=== PATIENT | female | born 1985 | race Caucasian/White ===

== ENCOUNTER 2020-02-12 13:44 | Outpatient (CLI) | payer BC, SELFPAY ==
--- NOTE | ~2020-02-12 | MR_ITS ---
EXAMINATION: MR humerus RT wo con DATE: 02/12/2020 15:13 INDICATION: Right upper arm pain with possible biceps tear. Assess for strain of muscle, fascia or te ndon. TECHNIQUE: Magnetic resonance imaging (MRI) of the right upper arm was performed without intravenous contrast. Sequences included axial, sagittal and coronal T1-weighted FSE and fluid sensitive FSE STIR . COMPARISON: Right shoulder radiographs dated 01/31/2020 FINDINGS: Dilation somewhat limited by small amount of motion artifact as well as field inhomogeneity artifact at the margins of the [id number] involving the right shoulder and elbow likely due in part to body habitus and position within the coil. Bone alignment is normal. Normal bone marrow signal throughout with no fracture, reactive edema or pathologic marrow replacing process. Joint spaces appear relativ abby preserved with small marginal osteophytes at the ulnotrochlear articulation consistent with mild osteoarthritis. Physiologic amount fluid in the joint spaces. Normal muscle signal throughout the upp er arm with no evident muscle strain. The distal biceps brachia tendon as well as the brachialis and triceps tendons at the elbow appear normal. The visualized long head biceps tendon appears normal and is normally located in the intertubercular groove with no surrounding bicipital tenosynovitis. Nelsy l right axillary lymph nodes. IMPRESSION: 1. Unremarkable MRI of the right upper arm. 2. Limited evaluation of the right shoulder and elbow which are at the margins of the [id number]. If there is specific concern for pathology at either of these locations would recommend further evalu ation with smaller field of view dedicated shoulder or elbow MRI respectively. Reviewed, dictated and finalized at location A. IMPRESSION: 1. Unremarkable MRI of the right upper arm. 2. Limited evaluation of the right shoulder and elbow which are at the margins of the [id number]. If there is specific concern for pathology at either of t hese locations would recommend further evaluation with smaller field of view de dicated shoulder or elbow MRI respectively.
== END 2020-02-12 13:45 | disposition home or self-care (01) ==
PROVIDERS: PCP Internal Medicine; Visit Provider Orthopaedic Surgery
DX: S46.211A Strain of muscle, fascia and tendon of other parts of biceps, right arm, initial encounter (principal)
CPT/HCPCS: 73218

== ENCOUNTER 2020-06-06 12:12 | Outpatient (CLI) | payer BC, SELFPAY ==
--- NOTE | ~2020-06-06 | XR_ITS ---
EXAMINATION: XR ankle LT min 3V DATE: 06/06/2020 12:35 INDICATION: Left ankle injury and pain. TECHNIQUE: 4 views of left ankle were obtained. COMPARISON: None. FINDINGS: Bone alignment is normal. No fracture. There is mild osteoarthritis of talonavicular joint. IMPRESSION: 1. Mild osteoarthritis of talonavicular joint. Reviewed, dictated and finalized at location B.
== END 2020-06-06 12:13 | disposition home or self-care (01) ==
LOC: ANHIMG 12:17
PROVIDERS: PCP Internal Medicine; Visit Provider Internal Medicine
DX: S99.912A Unspecified injury of left ankle, initial encounter (principal); S99.922A Unspecified injury of left foot, initial encounter; M19.072 Primary osteoarthritis, left ankle and foot
CPT/HCPCS: 73610

== ENCOUNTER 2020-08-30 12:47 | Outpatient (CLI) | payer BC, SELFPAY ==
--- NOTE | ~2020-08-30 | MR_ITS ---
EXAMINATION: MR ankle LT wo con, MR foot LT wo con DATE: 08/30/2020 14:11 INDICATION: Generalized left foot and ankle pain post injury a couple months prior. TECHNIQUE: 1. Magnetic resonance imaging (MRI) of the left ankle was performed without intravenous contrast. Seq uences included sagittal, coronal, and axial PD-weighted FSE and PD-weighted FS FSE. 2. MRI of the left foot was performed without intravenous contrast. Sequences included axial and elise nal T1-weighted FSE, axial and coronal PD-weighted FS FSE, axial PD-weighted FSE and sagittal fluid s ensitive FSE STIR. COMPARISON: None. FINDINGS: Medial ankle ligaments: Deep and superficial deltoid ligaments as well as the spring ligament are normal. Lateral ankle ligaments: The anterior and posterior inferior tibiofibular ligaments are normal. There is thickening and longit udinal split tearing of the anterior talofibular ligament with mild cystic change at its fibular inse rtion. The calcaneofibular ligament, posterior talofibular as well as the intervening posterior inter malleolar ligaments appear normal. Mid and forefoot ligaments: The Lisfranc ligament complex is normal. The collateral ligament complex at the metatarsophalangeal a nd interphalangeal joints are normal. Tendons: Achilles tendon is normal. The peroneus longus and brevis tendons are normal. The tibialis anterior a nd extensor hallucis longus and extensor digitorum longus tendons are normal. The tibialis posterior, flexor digitorum longus and flexor hallucis longus tendons are normal. Plantar fascia: Minimal thickening and minimal increased signal of the proximal aspect of the central component of th e plantar aponeurosis with small enthesophyte at its calcaneal origin. No surrounding edema to sugges t acute plantar fasciitis versus be consistent with mild chronic plantar enthesopathy. Bones/other: Bone alignment is normal. Normal marrow signal throughout with no fracture reactive marrow edema or p athologic marrow replacing process. There is a normal variant os trigonum. Mild synovitis along the c ephalad and lateral margins of the os trigonum between the intramedullary and posterior talofibular l igaments which could predispose towards posterior ankle impingement. Joint spaces are normal. Sinus T arsi and tarsal tunnel are unremarkable. Fluid: Physiologic amount of fluid in the joint spaces. No bursitis, tenosynovitis or other abnormal fluid c ollections. IMPRESSION: 1. Partial tear of the anterior talofibular ligament. 2. Mild synovitis at the posterolateral aspect of the ankle along side an os trigonum which could pre dispose towards posterior impingement. 3. Chronic mild enthesopathy at the calcaneal insertion of the proximal plantar aponeurosis. Reviewed, dictated and finalized at location H. MARKER IMPRESSION: 1. Partial tear of the anterior talofibular ligament. 2. Mild synovitis at the posterolateral aspect of the ankle along side an os tr igonum which could predispose towards posterior impingement. 3. Chronic mild enthesopathy at the calcaneal insertion of the proximal plantar aponeurosis.
== END 2020-08-30 12:48 | disposition home or self-care (01) ==
PROVIDERS: PCP Internal Medicine; Visit Provider Internal Medicine
DX: M25.572 Pain in left ankle and joints of left foot (principal); S93.492A Sprain of other ligament of left ankle, initial encounter; M65.872 Other synovitis and tenosynovitis, left ankle and foot; M77.8 Other enthesopathies, not elsewhere classified
CPT/HCPCS: 73718; 73721

== ENCOUNTER 2021-04-07 11:07 | Outpatient (CLI) | payer OTHER, SELFPAY ==
[2021-04-07 11:43] LABS: Basophils Percent Auto 0.3 % (0.2-1.2); Eosinophils Absolute Auto 0.2 K/mm3 (0-0.3); Eosinophils Percent Auto 1.8 % (0-4.4); Hematocrit 41.1 % (37.0-47.0); Hemoglobin 14.1 g/dL (12.0-15.0); Immature Granulocyte Absolute 0.05 K/mm3 (0.00-0.031); Immature Granulocyte Percent A 0.6 % (0-0.5); Lymphocytes Absolute Auto 2.64 K/mm3 (0.9-3.2); Lymphocytes Percent Auto 29.2 % (18.3-44.2); Mean Corpuscular HGB Conc 34.3 g/dl (32-36); Mean Corpuscular Hemoglobin 30.7 pg (26-34); Mean Corpuscular Volume 89.5 fl (80-100); Mean Platelet Volume 8.6 fl (7.4-10.4); Monocytes Absolute Auto 0.5 K/mm3 (0.1-0.6); Monocytes Percent Auto 5.2 % (2.6-8.5); Neutrophils Absolute Auto 5.7 K/mm3 (1.3-6.7); Neutrophils Percent Auto 62.9 % (45.5-73.1); Platelet Count Result 348 k/mm3 (150-375); Red Blood Count 4.59 M/mm3 (4.2-5.4)
[2021-04-07 13:05] LABS: Anion Gap 15 mmol/L (8-16); Blood Urea Nitrogen 12 mg/dL (7-17); CRP 0.9 mg/dL (<1.0); Calcium 9.8 mg/dL (8.4-10.2); Carbon Dioxide 20 mmol/L (22-30); Chloride 102 mmol/L (98-107); Estimated Glomerular Filt Rate > 60; Glucose 265 mg/dL (65-105); Potassium 4.6 mmol/L (3.4-5.0); Sodium 137 mmol/L (137-145)
[2021-04-07 13:45] LABS: Erythrocyte Sedimentation Rate 20 mm/hr (0-20)
== END 2021-04-07 11:08 | disposition home or self-care (01) ==
PROVIDERS: PCP Internal Medicine; Visit Provider Internal Medicine
DX: R51.9 Headache, unspecified (principal); I10 Essential (primary) hypertension
CPT/HCPCS: 36415; 80048; 85025; 85652; 86140

== ENCOUNTER 2021-04-07 11:40 | Outpatient (CLI) | payer OTHER, SELFPAY ==
--- NOTE | ~2021-04-07 | CT_ITS ---
EXAMINATION: CT facial bones wo con DATE: 04/07/2021 13:04 INDICATION: Face pain. TECHNIQUE: Computed tomography (CT) of the facial bones and maxillofacial region was performed withou t intravenous contrast. Automated exposure control and iterative reconstruction technique were employ ed. The dose-length product was 605.33 mGy-cm. COMPARISON: None. FINDINGS: There is mild mucosal thickening in the paranasal sinuses. The orbits are normal. The nasal septum demonstrates a right lateral spur. No fracture. IMPRESSION: 1. No specific etiology for the patient's symptoms. Reviewed, dictated and finalized at location A.
--- NOTE | ~2021-04-07 | CT_ITS ---
EXAMINATION: CT brain wo con DATE: 04/07/2021 13:04 INDICATION: Headache. TECHNIQUE: Computed tomography (CT) of the head was performed without intravenous contrast. The mA wa s adjusted according to patient size. Iterative reconstruction technique was employed. The dose-lengt h product was 605.33 mGy-cm. COMPARISON: None FINDINGS: There are calcifications in right cerebellum. There is no intracranial hemorrhage, acute in farction, or abnormal intracranial mass lesion. The ventricles are normal in size. The orbits are nor mal. There is mild mucosal thickening in the paranasal sinuses. The mastoid air cells are normal. IMPRESSION: 1. Calcifications in right cerebellum, which may be dystrophic calcifications in an unusual location. Brain MRI without and with contrast is recommended to exclude neoplasm. Reviewed, dictated and finalized at location A. IMPRESSION: 1. Calcifications in right cerebellum, which may be dystrophic calcifications i n an unusual location. Brain MRI without and with contrast is recommended to ex clude neoplasm.
== END 2021-04-07 11:41 | disposition home or self-care (01) ==
LOC: ANHIMG 04-14 11:40
PROVIDERS: PCP Internal Medicine; Visit Provider Internal Medicine
DX: R51.9 Headache, unspecified (principal); R93.0 Abnormal findings on diagnostic imaging of skull and head, not elsewhere classified
CPT/HCPCS: 70450; 70486

== ENCOUNTER 2021-04-23 12:47 | Outpatient (CLI) | payer OTHER, SELFPAY ==
--- NOTE | ~2021-04-23 | MR_ITS ---
EXAMINATION: MR brain/brain stem wo/w con EXAM DATE: 04/23/2021 14:01 INDICATION: R51.9 - Headache, unspecified. Lesion of brain, headache. TECHNIQUE: Magnetic resonance imaging (MRI) of the brain/brain stem obtained without contrast. Sagit maria t T1, axial diffusion, gradient echo (T2*), T1, T2, FLAIR sequences obtained. Patient was then inj ected with 20 cc intravenous Multihance contrast. Axial and coronal postcontrast T1 weighted sequence s obtained. Correlation is made to head CT 04/07/2021. FINDINGS: There is right cerebellar small region of encephalomalacia and somewhat linear region of fields sceptibility on gradient-echo sequence corresponding to the calcification described on CT. There is n o associated vasogenic edema or enhancement to suggest tumor. Probably encephalomalacia and dystrophi c calcification from prior or congenital infarct or other injury. Otherwise, normal brain signal inte nsity. Flow voids are seen in the cerebral arteries on the T2 weighted sequences consistent with thei r expected patency. No extra-axial collections, acute intracranial hemorrhage, obstructive hydrocepha joni or acute infarction. The soft tissue is unremarkable. There are no areas of abnormal enhancement on the post contrast images. IMPRESSION: 1. Small region right cerebellar encephalomalacia and associated dystrophic calcification from prior infarct or other insult. 2. No acute findings. Reviewed, dictated and finalized at location B. IMPRESSION: 1. Small region right cerebellar encephalomalacia and associated dystrophic ca lcification from prior infarct or other insult. 2. No acute findings.
== END 2021-04-23 12:48 | disposition home or self-care (01) ==
LOC: ANHIMG 12:55
PROVIDERS: PCP Internal Medicine; Visit Provider Internal Medicine
DX: R51.9 Headache, unspecified (principal); G93.89 Other specified disorders of brain
CPT/HCPCS: 70553; A9577

== ENCOUNTER 2021-04-30 12:34 | Outpatient (CLI) | payer OTHER, SELFPAY ==
--- NOTE | ~2021-04-30 | US_ITS ---
EXAMINATION: US carotid duplex BI DATE: 04/30/2021 13:03 INDICATION: Other specified disorders of brain TECHNIQUE: Grayscale, color Doppler, and pulsed Doppler images of the cervical carotid arteries were obtained. The degree of vessel stenosis is placed in one of the following categories: normal, <50%, 5 0-69%, >=70% but less than near-occlusion, near-occlusion, or total occlusion. Note that percent sten osis relative to normal distal artery lumen diameter is indirectly measured from velocity measurement s as described by Kyaw, et al. Radiology 2003; 229:340-346. COMPARISON: None. FINDINGS: RIGHT: The right common carotid artery (CCA) peak systolic velocity (PSV) is 93 cm/s. The right internal car otid artery (ICA) PSV is 53 cm/s. The right ICA end-diastolic velocity (EDV) is 24 cm/s. The right IC A/CCA PSV ratio is 0.6. Grayscale and color Doppler images demonstrate no evident stenosis or plaque in the ICA. The external carotid artery (ECA) PSV is 106 cm/s. There is antegrade flow in the right v ertebral artery. LEFT: The left CCA PSV is 101 cm/s. The left ICA PSV is 47 cm/s. The left ICA EDV is 20 cm/s. The left ICA/ CCA PSV ratio is 0.5. Grayscale and color Doppler images demonstrate no evident stenosis or plaque in the ICA. The ECA PSV is 73 cm/s. There is antegrade flow in the left vertebral artery. IMPRESSION: 1. No evident plaque or stenosis in the left or right internal carotid arteries. Reviewed, dictated and finalized at location A. IMPRESSION: 1. No evident plaque or stenosis in the left or right internal carotid arteries .
== END 2021-04-30 12:35 | disposition home or self-care (01) ==
PROVIDERS: PCP Internal Medicine; Visit Provider Internal Medicine
DX: R09.89 Other specified symptoms and signs involving the circulatory and respiratory systems (principal)
CPT/HCPCS: 93880

== ENCOUNTER 2021-05-07 13:33 | Outpatient (CLI) | payer OTHER, SELFPAY ==
--- NOTE | 2021-05-07 13:48 | ECHO_ITS ---
Patient Info Name: Dheeraj Tarango Age: 35 years : 1985 Gender: Female Ht: 63 in Wt: 255 lbs BSA: 2.34 m2 HR: 98 bpm BP: 157 / 96 mmHg Technical Quality: Fair Exam Date: 05/07/2021 1:56 PM Exam Location: [facility] Patient Status: Outpatient Admit Date: 05/07/2021 Staff Ordering Physician: Benny Patel MD Clinical Laboratory Manager: RAJ Attending Provider: Benny Patel MD Referring Physician: Amanda TSANG; Exam Type: CA echo doppler w bubble study Study Info Indications - UNSPECIFIED BRAIN DISORDER - G93.89 Complete two-dimensional, color flow and Doppler transthoracic echocardiogram is performed with agitated saline. Contrast/Agitated Saline Contrast/Ag. Saline: Agitated Saline Amount: 20.00 ml Summary 1. Left ventricular chamber dimension is normal. 2. Left ventricular systolic function is normal, estimated at 55-60%. 3. There is mildly increased left ventricular wall thickness. 4. The left ventricular diastolic function is grade I diastolic dysfunction. 5. E/e' 11 is mildly elevated. Left Ventricle E/e' 11 is mildly elevated. Left ventricular chamber dimension is normal. Left ventricular systolic function is normal, estimated at 55-60%. There is mildly increased left ventricular wall thickness. The left ventricular diastolic function is grade I diastolic dysfunction. Right Ventricle Right ventricular chamber dimension is normal. Right ventricular systolic function is normal. Left Atria Left atrial chamber dimension is normal. Right Atria Right atrial chamber dimension is normal. Atrial Septum Agitated saline injection with and without valsalva maneuver opacified right cardiac chambers without shunt to left cardiac chambers. Intact interatrial septum visualized by agitated saline imaging. Aortic Valve The aortic valve is trileaflet. There is no aortic valve stenosis. There is no aortic valve regurgitation. Pulmonic Valve There is no pulmonic regurgitation. Mitral Valve There is no mitral valve stenosis. There is no mitral valve regurgitation. Tricuspid Valve There is no tricuspid valve regurgitation. Pericardium/Pleural There is no pericardial effusion. Inferior Vena Cava Normal inferior vena cava with >50% collapse upon inspiration consistent with normal right atrial pressure, 5 mmHg. Aorta The aortic root size at the sinus of Valsalva is normal. Left Ventricular Outflow Tract Name Value Normal LVOT 2D LVOT Diameter 2.0 cm LVOT Doppler LVOT Peak Gradient 5 mmHg LVOT Mean Gradient 3 mmHg LVOT VTI 20 cm LVOT VTI/AV VTI Ratio 0.7 LVOT Stroke Volume 61 ml LVOT CO 15.3 l/min LVOT CI 6.5 l/min/m2 Pulmonic Valve Name Value Normal
--- NOTE | 2021-05-12 12:29 | WPDHOLTEREM ---
Holter/Event Monitor Holter/Event Monitor Date of procedure: 05/07/21 Holter/Event Procedure: 48 Hr Holter Monitor Indications: Other specified disorders of the brain Conclusion: 1. 48 hour holter monitor on 05/07/21. 2. Predominant rhythm is sinus rhythm. HR range 64-160 bpm; average HR 104 bpm. 3. There are 4 premature supraventricular complexes. There is one atrial tachycardia at 169 bpm lasting 4 beats at 04:53. 4. There is 1 premature ventricular complex. No ventricular tachycardia. 5. No sinoatrial or atrioventricular blocks. No significant pauses greater than 2 seconds. 6. No symptoms available for correlation.
== END 2021-05-07 13:34 | disposition home or self-care (01) ==
PROVIDERS: PCP Internal Medicine; Visit Provider Internal Medicine
DX: G93.89 Other specified disorders of brain (principal); I10 Essential (primary) hypertension; I63.9 Cerebral infarction, unspecified
CPT/HCPCS: 93225; 93226; 93306; 96375

== ENCOUNTER 2021-06-11 12:59 | Outpatient (CLI) | payer OTHER, SELFPAY ==
--- NOTE | ~2021-06-11 | US_ITS ---
EXAMINATION: US pelvic complete w TV EXAM DATE: 06/11/2021 13:37 INDICATION: Pelvic pain. TECHNIQUE: Pelvic transabdominal and transvaginal sonogram was performed. There are multiple graysca le and Doppler images available for interpretation. Comparison is made to prior examination from 07/10. FINDINGS: Uterus measures 8.0 x 4.8 x 4.5 cm, artifact from IUD appears to be in the endometrial cav ity. Endometrial stripe measures 6 mm, within normal limits. There is a nabothian cyst. There is no free pelvic fluid. Right adnexa: The ovary measures 2.1 x 1.5 x 1.7 cm and is morphologically normal. Ovarian vascular f low confirmed. Left adnexa: The ovary is not identified. There is no adnexal mass. IMPRESSION: 1. Unremarkable pelvic ultrasound exam. Reviewed, dictated and finalized at location B.
== END 2021-06-11 13:00 | disposition home or self-care (01) ==
PROVIDERS: PCP Internal Medicine; Visit Provider Nurse Practitioner
DX: R10.2 Pelvic and perineal pain (principal)
CPT/HCPCS: 76830; 76856

== ENCOUNTER 2021-09-22 14:38 | Outpatient (CLI) | payer OTHER, SELFPAY ==
--- NOTE | ~2021-09-22 | CT_ITS ---
EXAMINATION: CT soft tissue neck wo con DATE: 09/22/2021 15:21 INDICATION: Left-sided jaw pain. Headache. Sialoadenitis. TECHNIQUE: Computed tomography (CT) of the neck was performed without intravenous contrast. Automated exposure control and iterative reconstruction technique were employed. The dose-length product was 5 52.67 mGy-cm. COMPARISON: CT maxillofacial 04/07/2021, head CT 04/07/2021 FINDINGS: There is an enlarged high right internal jugular chain lymph node measuring 19 x 16 mm. The major salivary glands are normal. No sialolith. There is mild mucosal thickening in the paranasal si nuses. The mastoid air cells are normal. Again seen are dystrophic calcifications in right cerebellu m. There is mild cervical spondylosis. IMPRESSION: 1. Stable mildly enlarged right high internal jugular chain lymph node, likely reactive. Reviewed, dictated and finalized at location A. 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
== END 2021-09-22 14:39 | disposition home or self-care (01) ==
LOC: ANHIMG 14:41
PROVIDERS: PCP Internal Medicine; Visit Provider Internal Medicine
DX: R51.9 Headache, unspecified (principal); R68.84 Jaw pain; K11.20 Sialoadenitis, unspecified; M47.812 Spondylosis without myelopathy or radiculopathy, cervical region
CPT/HCPCS: 70490

== ENCOUNTER 2023-04-18 15:45 | Outpatient (CLI) | payer BC, SELFPAY ==
--- NOTE | ~2023-04-18 | CT_ITS ---
EXAMINATION: CT sinus wo con DATE: 04/18/2023 16:05 INDICATION: Chronic sinusitis. TECHNIQUE: Computed tomography (CT) of the paranasal sinuses was performed without intravenous contra st. Iterative reconstruction technique was employed. The dose-length product was 273.81 mGy-cm. COMPARISON: Maxillofacial CT 04/07/2021 FINDINGS: The frontal sinuses are clear. There is mild mucosal thickening in the bilateral ethmoid si nuses and maxillary sinuses. There is mild mucosal thickening in sphenoid sinus. There is rightward d eviation nasal septum. There is leslie bullosa involving right middle turbinate. The ostiomeatal unit s are patent. IMPRESSION: 1. Mucosal thickening in the paranasal sinuses. 2. Rightward deviation of the nasal septum. Reviewed, dictated and finalized at location E.
== END 2023-04-18 15:46 ==
PROVIDERS: PCP Internal Medicine; Visit Provider Otolaryngology
DX: J32.9 Chronic sinusitis, unspecified (principal); J34.2 Deviated nasal septum
CPT/HCPCS: 70486

== ENCOUNTER 2023-10-04 15:23 | Emergency (ER) | payer BC, SELFPAY ==
--- NOTE | ~2023-10-04 | CT_ITS ---
EXAMINATION: CT abdomen pelvis w con DATE: 10/04/2023 16:21 INDICATION: abdominal pain, hx UC TECHNIQUE: Computed tomography (CT) of the abdomen and pelvis was performed with 100 mL Omnipaque-350 intravenous contrast. Automated exposure control and iterative reconstruction technique were employe d. The dose-length product was 1457.02 mGy-cm. COMPARISON: CT abdomen 10/21/2015; MR abdomen 12/10/2015. FINDINGS: Lower thorax: Unremarkable Liver: Normal. Biliary/Gallbladder: Gallbladder is absent. No bile duct dilation. Pancreas: No mass or duct dilation. Spleen: Normal. Adrenals:No mass. Kidneys: No suspicious mass, obstructing stone, or hydronephrosis. GI tract: Mild distal esophageal wall edema/thickening, with adjacent subcentimeter lymph nodes. No s mall or large bowel dilation. Appendix not visualized. 2.3 cm cyst in the left posterior/mid abdomina l fat, just inferior to the left paracolic gutter, stable since 2015. Mesentery/Peritoneum: No ascites, mass, or free air. Retroperitoneum: No mass. Pelvis: Pelvic organs are within normal limits. 3.1 cm simple left ovarian cyst which requires no add itional evaluation. IUD in good position. Soft Tissues: Soft tissues and body wall unremarkable. Bones: No acute osseous finding. IMPRESSION: Mild distal esophagitis with adjacent subcentimeter lymph nodes. Otherwise, no acute abdominopelvic process detected. Reviewed, dictated and finalized at location K. US TAKER
[2023-10-04 15:28] VITALS: BP 153/85; PULSE 96; RESP 16; TEMP 36.7; O2SAT 98
--- NOTE | 2023-10-04 15:30 | ED.ABDPAIN ---
HPI - Abdominal Pain General Chief Complaint: Abdominal Pain <Vania Puri APRN - Last Filed: 10/04/23 15:36> Stated Complaint: abd pain, nausea, low back pain, diarrhea <Vania Puri APRN - Last Filed: 10/04/23 15:36> Time Seen by Provider: 10/04/23 18:45 <Vania Puri APRN - Last Filed: 10/04/23 15:36> Source: patient <Vania Puri APRN - Last Filed: 10/04/23 15:36> Mode of arrival: ambulatory <Vania Puri APRN - Last Filed: 10/04/23 15:36> Limitations: no limitations <Vania Puri APRN - Last Filed: 10/04/23 15:36> History of Present Illness HPI narrative: Patient is a pleasant 37-year-old female with a past medical history of ulcerative colitis who presents emergency department today for evaluation of a few days of nausea, diarrhea, generalized abdominal discomfort, low back pain and concerns of having a flare. States it has been many years since she has had 1. Denies any blood in her stool. Reports generalized abdominal discomfort with occasional sharp pains. Denies any fever. She has not thrown up. Denies any urinary symptoms. <Vania Puri APRN - Last Filed: 10/04/23 15:36> Patient is a pleasant 37-year-old female with a past medical history of ulcerative colitis who presents emergency department today for evaluation of a few days of nausea, diarrhea, generalized abdominal discomfort, low back pain and concerns of having a flare. States it has been many years since she has had 1. Denies any blood in her stool. Does report mucous in stool. Reports generalized abdominal discomfort with occasional sharp pains. Denies any fever. She has not thrown up. Denies any urinary symptoms. <Rozina Awan PA-C - Last Filed: 10/05/23 04:01> Related Data Home Medications: Home Medications Medication Instructions Recorded Confirmed levonorgestrel 21 mcg/24 hours (8 1 device intrauterine ONCE 12/13/19 12/01/23 yrs) 52 mg intrauterine device (Mirena) ivermectin 1 % topical cream 1 applic topical DAILY 12/04/20 09/09/23 (Soolantra) aspirin 81 mg tablet,delayed 81 mg PO DAILY 05/01/21 09/09/23 release (Adult Low Dose Aspirin) carbamazepine 100 mg 100 mg PO Q12H 09/08/23 09/09/23 capsule,extended release [id number] topiramate 25 mg tablet (Topamax) 25 mg PO BID 09/08/23 09/09/23 <Vania Puri APRN - Last Filed: 10/04/23 15:36> Allergies/Adverse Reactions: Allergies Allergy/AdvReac Type Severity Reaction Status Date / Time metformin AdvReac Mild Diarrhea Verified 10/04/23 19:02 <Vania Puri APRN - Last Filed: 10/04/23 15:36> Review of Systems Review of Systems: CONSTITUTIONAL: Denies fever, chills, or sweats. ENT: Denies rhinorrhea, congestion, sore throat, or otalgia. CARDIOVASCULAR: Denies chest pain, palpitations, or edema. RESPIRATORY: Denies cough or dyspnea. GASTROINTESTINAL: +generalized discomfort throughout and occasional sharp abdominal pain, nausea,& diarrhea. Denies vomiting. denies bloody stool GENITOURINARY: Denies dysuria or hematuria. SKIN: Denies rash or itching. MUSCULOSKELETAL: +bilateral low back pain. denies joint pain, or myalgia. NEUROLOGIC: Denies headache, numbness, or weakness. PSYCHIATRIC: Denies anxiety or depression. <Vania Puri APRN - Last Filed: 10/04/23 15:36> All systems reviewed & are unremarkable except as noted in HPI and below <Vania Puri APRN - Last Filed: 10/04/23 15:36> [facility] Past Medical History Medical History: Medical History Abdominal pain Abnormal finding of blood chemistry Abnormal vaginal bleeding Acid reflux Anxiety Anxiety Benign essential hypertension Body mass index (BMI) 40.0-44.9, adult Body mass index (BMI) 45.0-49.9, adult Brain lesion Carotid bruit Cholesterolosis of gallbladder Chronic cholecystitis Claustrophobia Cough CVA (cerebral vascular accident) Depression Diabetes D
[2023-10-04 15:55] LABS: Basophils Percent Auto 0.5 % (0.2-1.2); Eosinophils Absolute Auto 0.2 K/mm3 (0-0.3); Eosinophils Percent Auto 2.6 % (0-4.4); Hemoglobin 13.6 g/dL (12.0-15.0); Immature Granulocyte Absolute 0.03 K/mm3 (0.00-0.031); Immature Granulocyte Percent A 0.4 % (0-0.5); Lymphocytes Absolute Auto 3.08 K/mm3 (0.9-3.2); Lymphocytes Percent Auto 36.5 % (18.3-44.2); Mean Corpuscular HGB Conc 33.2 g/dl (32-36); Mean Corpuscular Hemoglobin 31.1 pg (26-34); Mean Corpuscular Volume 93.8 fl (80-100); Monocytes Absolute Auto 0.6 K/mm3 (0.1-0.6); Monocytes Percent Auto 7.2 % (2.6-8.5); Neutrophils Absolute Auto 4.5 K/mm3 (1.3-6.7); Neutrophils Percent Auto 52.8 % (45.5-73.1); Platelet Count Result 401 k/mm3 (150-375); Red Blood Count 4.37 M/mm3 (4.2-5.4); Red Cell Distribution Width 12.3 % (11.5-14.5); White Blood Count 8.4 K/mm3 (4.5-10.0)
[2023-10-04 16:04] LABS: Alanine Aminotransferase 37 U/L (6-35); Albumin Level 4.5 g/dL (3.5-5.1); Alkaline Phosphatase 62 U/L (38-126); Anion Gap 11 mmol/L (8-16); Aspartate Amino Transferase 33 U/L (14-36); Bilirubin,Total 0.5 mg/dL (0.2-1.3); Blood Urea Nitrogen 13 mg/dL (7-17); Calcium 9.3 mg/dL (8.4-10.2); Carbon Dioxide 25 mmol/L (22-30); Chloride 104 mmol/L (98-107); Estimated CRCL calculation 129 ml/min; Estimated Glomerular Filt Rate > 60; Glucose 128 mg/dL (65-110); Lipase 167 U/L (23-300); Magnesium 1.8 mg/dL (1.6-2.3); Potassium 3.8 mmol/L (3.4-5.0); Sodium 140 mmol/L (137-145)
--- NOTE | 2023-10-04 16:09 | PC.NURSE ---
patient wants to do CT scan before having a test result. CT scan aware
[2023-10-04 16:31] LABS: Influenza A QL RT-PCR Negative (Negative); Influenza B QL RT-PCR Negative (Negative); RSV RNA, RT-PCR Negative (Negative); SARS-CoV-2 RNA PCR Negative (Negative)
[2023-10-04] MEDS: FAMOTIDINE 20 MG/2 ML VIAL IV PUSH (17:23)
[2023-10-04] MEDS: ONDANSETRON INJ 4 MG/2 ML VIAL IV PUSH (17:24)
[2023-10-04 18:59] VITALS: O2SAT 96
[2023-10-04 19:00] VITALS: PULSE 85; RESP 15; O2SAT 100
[2023-10-04 19:01] VITALS: BP 153/84; PULSE 86; RESP 14; O2SAT 100
[2023-10-04] MEDS: SODIUM CHLORIDE 0.9% IV 1,000 ML 999 ML IV CONT (19:03)
--- NOTE | 2023-10-04 19:13 | PC.NURSE ---
BSSR to Dontae CORONEL
[2023-10-04 19:22] VITALS: BP 137/82; PULSE 80; RESP 17; TEMP 36.8; O2SAT 100
[2023-10-04 19:25] LABS: Appearance Urine Clear (Clear); Bilirubin Urine Negative (Negative); Blood Urine Negative (Negative); Color Urine Yellow (Yellow); Glucose Urine UA 2+ mg/dL (Negative); Ketones Urine Negative (Negative); Leukocyte Esterase Ur Negative LEU/UL (Negative); Nitrate Urine Negative (Negative); Protein Urine Negative (Negative); Urobilinogen Urine 0.2 mg/dL (<2.0)
[2023-10-04 19:28] LABS: Specific Grav Ur 1.081 (1.001-1.035)
[2023-10-04 19:29] LABS: Add Urine Microscopic? NO
[2023-10-04] MEDS: DICYCLOMINE HCL 10 MG CAPSULE 20 MG PO (20:03)
[2023-10-04] MEDS: MORPHINE SULFATE (*CRX) 4 MG/ML INJ IV PUSH (20:03)
--- NOTE | 2023-10-04 20:48 | ED.ABDPAIN ---
HPI - Abdominal Pain General Chief Complaint: Abdominal Pain Stated Complaint: abd pain, nausea, low back pain, diarrhea Time Seen by Provider: 10/04/23 18:45 Source: patient Mode of arrival: ambulatory Limitations: no limitations Related Data Home Medications Medication Instructions Recorded Confirmed levonorgestrel 21 mcg/24 hours (8 1 device intrauterine ONCE 09/21/19 09/09/23 yrs) 52 mg intrauterine device (Mirena) ivermectin 1 % topical cream 1 applic topical DAILY 12/04/20 09/09/23 (Soolantra) aspirin 81 mg tablet,delayed 81 mg PO DAILY 05/01/21 09/09/23 release (Adult Low Dose Aspirin) carbamazepine 100 mg 100 mg PO Q12H 09/08/23 09/09/23 capsule,extended release [id number] topiramate 25 mg tablet (Topamax) 25 mg PO BID 09/08/23 09/09/23 Allergies Allergy/AdvReac Type Severity Reaction Status Date / Time metformin AdvReac Mild Diarrhea Verified 10/04/23 19:02 [facility] Past Medical History Medical History Abdominal pain Abnormal finding of blood chemistry Abnormal vaginal bleeding Acid reflux Anxiety Anxiety Benign essential hypertension Body mass index (BMI) 40.0-44.9, adult Body mass index (BMI) 45.0-49.9, adult Brain lesion Carotid bruit Cholesterolosis of gallbladder Chronic cholecystitis Claustrophobia Cough CVA (cerebral vascular accident) Depression Diabetes Diabetes mellitus with hyperglycemia Diarrhea DM type 2 (diabetes mellitus, type 2) Elevated BP without diagnosis of hypertension Encephalomalacia on imaging study Encounter for IUD insertion Encounter for preventive health examination Encounter for routine adult health examination without abnormal findings Encounter for routine adult medical exam with abnormal findings Epigastric abdominal pain Fatty liver Follow up Hirsutism Hypersomnolence Hypertriglyceridemia Left ankle injury Left ankle pain Left foot pain Left-sided face pain Migraine headache Mucocele of lip On correction drug therapy VÍCTOR (obstructive sleep apnea) Parotiditis Persistent headaches Right shoulder pain Screening for STDs (sexually transmitted diseases) Trigeminal neuralgia Ulcerative colitis URI (upper respiratory infection) Vitamin D deficiency Wheezing Surgical History Surgical History History of appendectomy 2001 History of cholecystectomy 2016 Social History Social History Social History: Caffeine-occasional Smoking status: Never smoker Second hand tobacco smoke exposure: No Alcohol intake: current Alcohol use details: rarely Substance use: current Substance use type: marijuana Lack of Transportation: No Lack of Food: Never True Current Housing: I Have Housing Concerned About Future Housing: No Difficulty Paying Gas/Electric Bills: No Difficulty Paying for Meds: No Currently Unemployed: No Difficulty w/ Childcare or Family Care: No Living arrangements: alone Occupation/Education: occupation Gender identity (if verbalized by the patient): Female Course Vital Signs Vital signs: Vital Signs Temperature 98.0 F 10/04/23 15:28 Pulse Rate 96 10/04/23 15:28 Respiratory Rate 16 10/04/23 15:28 Blood Pressure 153/85 H 10/04/23 15:28 Pulse Oximetry 98 10/04/23 15:28 Oxygen Delivery Room Air 10/04/23 15:28 Temperature 98.2 F 10/04/23 19:22 Pulse Rate 80 10/04/23 19:22 Respiratory Rate 17 10/04/23 19:22 Blood Pressure 137/82 10/04/23 19:22 Pulse Oximetry 100 10/04/23 19:22 Oxygen Delivery Room Air 10/04/23 15:28 MDM - Abdominal Pain Lab Data 10/04/23 15:48 10/04/23 15:48 Labs: Lab Results 10/04/23 10/04/23 Range/Units 15:48 19:01 WBC 8.4 (4.5-10.0) K/mm3 RBC 4.37 (4.2-5.4) M/mm3 Hgb 13.6 (12.0-15.0) g/dL Hct 41.0 (37.0-47.0) % [facility]
[2023-10-04 21:38] VITALS: BP 138/79; PULSE 88; RESP 21; TEMP 36.6; O2SAT 97
== END 2023-10-04 21:39 | disposition home or self-care (01) ==
PROVIDERS: Nurse Practitioner; Emergency Provider Physician Assistant; PCP Internal Medicine
DX: K51.90 Ulcerative colitis, unspecified, without complications (principal); K21.00 Gastro-esophageal reflux disease with esophagitis, without bleeding; R19.7 Diarrhea, unspecified; R10.9 Unspecified abdominal pain; I10 Essential (primary) hypertension; F41.9 Anxiety disorder, unspecified; E11.9 Type 2 diabetes mellitus without complications; F32.A Depression, unspecified; Z86.73 Personal history of transient ischemic attack (TIA), and cerebral infarction without residual deficits; K21.9 Gastro-esophageal reflux disease without esophagitis; G47.33 Obstructive sleep apnea (adult) (pediatric); Z79.82 Long term (current) use of aspirin; F12.90 Cannabis use, unspecified, uncomplicated; Z20.822 Contact with and (suspected) exposure to COVID-19
CPT/HCPCS: 36415; 74177; 80053; 81003; 81025; 83690; 83735; 85025; 87637; 96361; 96374; 96375; 99284; A9270; J2270; J2405; J7030; Q9967

== ENCOUNTER 2024-09-23 19:52 | Emergency (ER) | payer BC, SELFPAY ==
--- NOTE | ~2024-09-23 | XR_ITS ---
EXAM: XR ankle LT min 3V, XR foot LT min 3V DATE: 09/23/2024 20:53 HISTORY: Injury, pain. ROLLED ANKLE STEPPING OFF CURB . COMPARISON: 09/12/2020, images only. FINDINGS: Normal mineralization. Small well-corticated ossific fragment at the tip of lateral malleo joni, likely old avulsion fracture fragment. No acute fracture or dislocation. No lytic or blastic les ion. Mild scattered degenerative changes. Mild plantar enthesopathy. No erosion or periosteal change. Lateral soft tissue swelling. Small ankle joint effusion. IMPRESSION: No acute osseous finding in the left foot or ankle. Reviewed, dictated and finalized at location K. [facility] IMPRESSION: No acute osseous finding in the left foot or ankle.
[2024-09-23 19:54] VITALS: BP 181/90; PULSE 108; RESP 14; TEMP 36.6; O2SAT 99
--- NOTE | 2024-09-23 22:33 | ED_ITS ---
HPI - Extremity Injury (Lower) General Chief Complaint: Extremity Injury, Lower Stated Complaint: fall, left foot pain Time Seen by Provider: 09/23/24 20:16 History of Present Illness HPI Narrative: 38-year-old female presents to emergency room with complaints of left ankle and foot pain. Patient states she was walking and stepped off of a curb awkwardly and twisted her left ankle. Was able to bear weight immediately afterwards but having pain and had to hobble into the emergency department. Happened about 3:00 p.m. tonight. Denies any other injuries or recent trauma. Has good sensation and motor strength in the extremity. No weakness or neuropathy. Has not taking anything for pain prior to arrival. No obvious deformity or open fracture. Related Data Home Medications ?Medication ?Instructions ?Recorded ?Confirmed ?Last Taken ?Type levonorgestrel 21 mcg/24 hr (up to 1 device intrauterine ONCE 09/21/19 10/13/23 Unknown History 8 years) 52 mg intrauterine device (Mirena) ivermectin 1 % topical cream 1 applic topical DAILY 12/04/20 10/13/23 Unknown History (Soolantra) aspirin 81 mg tablet,delayed 81 mg PO DAILY 05/01/21 10/13/23 Unknown History release (Adult Low Dose Aspirin) carbamazepine 100 mg 100 mg PO Q12H 09/08/23 10/13/23 Unknown History capsule,extended release [id number] topiramate 25 mg tablet (Topamax) 25 mg PO BID 09/08/23 10/13/23 Unknown History Allergies Allergy/AdvReac Type Severity Reaction Status Date / Time No Known Allergies Allergy Verified 09/23/24 19:57 Review of Systems Review of Systems: As reviewed above in HPI [facility] Past Medical History Medical History Trigeminal neuralgia Encounter for preventive health examination Encounter for routine adult health examination without abnormal findings URI (upper respiratory infection) VÍCTOR (obstructive sleep apnea) Wheezing Screening for STDs (sexually transmitted diseases) Hirsutism Epigastric abdominal pain Encounter for IUD insertion Elevated BP without diagnosis of hypertension Cough Chronic cholecystitis Cholesterolosis of gallbladder Abnormal vaginal bleeding Abdominal pain Parotiditis DM type 2 (diabetes mellitus, type 2) CVA (cerebral vascular accident) Carotid bruit Encephalomalacia on imaging study Claustrophobia Brain lesion Left-sided face pain Persistent headaches Diabetes Diarrhea Anxiety Body mass index (BMI) 40.0-44.9, adult Follow up Diabetes mellitus with hyperglycemia Hypertriglyceridemia Migraine headache Left foot pain Left ankle pain Left ankle injury Vitamin D deficiency Abnormal finding of blood chemistry Right shoulder pain Acid reflux Ulcerative colitis Anxiety Depression Mucocele of lip Hypersomnolence Body mass index (BMI) 45.0-49.9, adult Fatty liver Encounter for routine adult medical exam with abnormal findings On [facility] drug therapy Benign essential hypertension Surgical History Surgical History History of cholecystectomy 2016 History of appendectomy 2001 Social History Social History Social History: Caffeine-occasional Smoking status: Never smoker Second hand tobacco smoke exposure: No Alcohol intake: current Alcohol use details: rarely Substance use: current Substance use type: marijuana Lack of Transportation: No Lack of Food: Never True Current Housing: I Have Housing Concerned About Future Housing: No Difficulty Paying Gas/Electric Bills: No Difficulty Paying for Meds: No Currently Unemployed: No Difficulty w/ Childcare or Family Care: No Living arrangements: alone Occupation/Education: occupation Gender identity (if verbalized by the patient): Female Exam Narrative: GENERAL: [Well-appearing, well-nourished, and in no acute distress.] HEAD: [Normocephalic, atraumatic.] EYES: [PERRLA and EOMI.] ENT: Nares clear, no rhinorrhea or epistaxis. Mucous membranes moist. NECK: Supple. CHEST: [Clear to auscultation. No respiratory distress.] HEART: [Regular rate and rhythm]. No murmur heard. [Normal peripheral pulses.] ABDOMEN: [Soft, nondistended], [nontender], [No rigidity or guarding] EXTREMITIES: Swelling and tenderness over the left lateral aspect of the malleolus on the left lower extremity. No obvious step-offs deformities. Pain with palpation and tied our dorsiflexion although range of motion is full. No step-offs or instability in the ankle mortise. 2+ pulses equally. SKIN: Warm, dry, no rash. NEURO: [No focal deficits]. Alert and oriented [x3.] PSYCH: [Normal mood and affect.] Course Vital Signs Vital signs: Vital Signs Temperature 36.6 C 09/23/24 19:54 Pulse Rate 108 H 09/23/24 19:54 Respiratory Rate 14 09/23/24 19:54 Blood Pressure 181/90 H 09/23/24 19:54 Pulse Oximetry 99 09/23/24 19:54 Oxygen Delivery Room Air 09/23/24 19:54 Temperature 36.6 C 09/23/24 19:54 Pulse Rate 108 H 09/23/24 19:54 Respiratory Rate 14 09/23/24 19:54 Blood Pressure 181/90 H 09/23/24 19:54 Pulse Oximetry 99 09/23/24 19:54 Oxygen Delivery Room Air 09/23/24 19:54 MDM - Extremity Injury (Lower) MDM Narrative Medical decision making narrative: 30-year-old female presents with a rolled left ankle and concern for potential a nkle fracture versus ligament strain or sprain. Relatively minor trauma and she stepped off from occurred on quickly and twisted her ankle. Did not fall or hit her head. She otherwise appears well not any acute distress. She has good symmetric pulses, good range of motion albeit painful with palpation and movement of the left ankle. Joint is stable. X-rays were obtained and shows no acute fracture. She was given an Maykel wrap for comfort as well as Jones, crutches for ambulation can given expected management and instructions and follow-up. Verbalized understanding and safe for discharge. Medical Records Attestation: I reviewed the patient's medical records. Imaging Data Attestation: I personally reviewed and interpreted this imaging study as follows: My impression: Impressions Ankle X-Ray 09/23/24 21:12 IMPRESSION: No acute osseous finding in the left foot or ankle. Foot X-Ray 09/23/24 21:12 IMPRESSION: No acute osseous finding in the left foot or ankle. Discharge Plan Discharge Clinical Impression: Ankle sprain Patient Disposition: Home, Self-Care Condition: Stable Instructions: Antibiotic Form Additional Instructions: Follow-up on outpatient basis with her primary care provider. Continue ice, elevation, compression and Tylenol and ibuprofen for pain control. Return to activities as tolerated. Return with any worsening symptoms. Patient Language: Sammarinese Prescriptions: No Action metformin 500 mg tablet,ER maryam.retention 24 hr 1,000 mg PO DAILY Qty: 180 1RF (DME) Blood Glucose Test Strip See Rx Instructions .Route Qty: 50 3RF Rx Instructions: As directed (DME) blood-glucose meter [Blood Glucose Monitoring] Kit See Rx Instructions .Route Qty: 1 0RF Rx Instructions: As directed Mirena 20 mcg/24 hours (5 yrs) 52 mg intrauterine device 1 device I-UTERINE ONCE (DME) lancets [OneTouch Delica Plus Lancet] 33 gauge misc See Rx Instructions .ROUTE .MEDSUPPLY Qty: 100 3RF Rx Instructions: Use to test BS once daily ivermectin [Soolantra] 1 % cream 1 applic topical DAILY topiramate [Topamax] 25 mg tablet 25 mg PO BID carbamazepine 100 mg capsule, ER multiphase 12 hr 100 mg PO Q12H duloxetine 30 mg capsule,delayed release(DR/EC) 30 mg PO DAILY Qty: 7 0RF Rx Instructions: When finished with 7 day script , stop and start Duloxetine 60mg thereafter. Thank you omeprazole 10 mg capsule,delayed release(DR/EC) 10 mg PO DAILY Qty: 30 0RF dicyclomine 20 mg tablet 20 mg PO TID PRN (Reason: Abdominal Discomfort) Qty: 20 0RF ondansetron 4 mg tablet,disintegrating 4 mg PO Q8H PRN (Reason: nausea and vomiting) Qty: 15 0RF aspirin [Adult Low Dose Aspirin] 81 mg tablet,delayed release (DR/EC) 81 mg PO DAILY fluticasone propionate 50 mcg/actuation spray,suspension See Rx Instructions .ROUTE .COMPLEX Qty: 48 1RF Dose Instruction: SHAKE LIQUID AND USE 2 SPRAYS IN EACH NOSTRIL DAILY Rx Instructions: SHAKE LIQUID AND USE 2 SPRAYS IN EACH NOSTRIL DAILY rizatriptan 10 mg tablet,disintegrating See Rx Instructions .ROUTE .COMPLEX Qty: 30 0RF Dose Instruction: DISSOLVE 1 TABLET BY MOUTH AT ONSET OF MIGRAINE, MAY REPEAT AFTER AT LEAST 2 HOURS Rx Instructions: DISSOLVE 1 TABLET BY MOUTH AT ONSET OF MIGRAINE, MAY REPEAT AFTER AT LEAST 2 HOURS fluconazole [Diflucan] 200 mg tablet 200 mg PO DAILY Qty: 2 0RF cholestyramine (with sugar) [Questran] 4 gram powder 4 g PO BID Qty: 348.6 5RF Rx Instructions: administer w/meal; avoid other meds within 1hr before or 4-6hr after dose atorvastatin 10 mg tablet 10 mg PO DAILY Qty: 90 1RF glimepiride 1 mg tablet 1 mg PO QAM Qty: 90 1RF Rx Instructions: administer with breakfast Farxiga 10 mg tablet 10 mg PO DAILY Qty: 90 2RF duloxetine 60 mg capsule,delayed release(DR/EC) See Rx Instructions .ROUTE .COMPLEX Qty: 90 0RF Dose Instruction: TAKE 1 CAPSULE BY MOUTH DAILY Rx Instructions: TAKE 1 CAPSULE BY MOUTH DAILY Follow-up/Referrals: UNKNOWN,DOCTOR [Primary Care Provider] - Time of Disposition: 22:33
[2024-09-23] MEDS: HYDROcodone/acetaminophen (*CRX) 5-325 MG TABLET 1 TAB PO (22:46)
--- OUTSIDE RECORDS SUMMARY | 2024-09-28 22:44 | XMS_ITS ---
Author Organization [facility] Address [address] [place] [address] Care Team Providers Care Pantograph I Engraver Name Role Phone Murtaza Jo Primary Care Provider [phone] REASON FOR VISIT Message Encounters Encounter Location Date Provider Diagnosis [facility] [address] [place] [address] 06/18/2024 Murtaza Jo Plan Of Treatment No Information Progress Notes * Dheeraj HELM EDOB: [birth year] (38 yo M)Acc No.[id number]:06/18/2024 Patient:?Dheeraj HELM :1985???Age:38 Y???Sex:Male Address:[place], [address] * true * Date:? Generated for Printi ng/Faxing/eTransmitting on:?09/28/2024 10:44 PM FIELD PRODUCER
--- OUTSIDE RECORDS SUMMARY | 2024-09-28 22:44 | XMS_ITS | Encounter Summary ---
Author Organization [facility] Address [address] [place] [address] Care Team Providers Care C.O.D. Biller Name Role Phone Benny Patel MD Primary Care Provider [phone] Encounter Details Date Type Department Care Team (Late st Contact Info) Description 03/28/2024 Orders Only [facility] [address] [facility] [address] [place] [id number] Lex Perez MD [address] [facility] [address] [place], [place] [id number] Trigeminal neuralgia; Chronic migraine without aura without status migrainosus, not intractable Social History Tobacco Use Types Packs/Day Years Used Date Smoking Tobacco: Never Smokeless Tobacco: Never Comments Unknown Sex and Gender Information Value Date Recorded Sex Assigned at Not on file Legal 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 Gender Identity Female 02/28/2024 6:59 PM CDT Sexual Orientation Straight 02/28/2024 6: 59 PM CDT documented as of this encounter Ordered Prescriptions Prescription Sig Dispense Quantity Refills Last Filled Start Date End Date carBAMazepine XR (TEGretol XR) 100 mg 12 hr tablet Take 1 tablet (100 mg total) by mouth 2 (two) times a day 60 tablet 3 03/28/2024 03/28/2025 topiramate (TOPAMAX) 50 mg tabletIndications: Trigeminal neuralgia,Chronic migraine without aura without status migrainosus, not intractable TAKE 1 TABLET BY MOUTH TWICE DAILY 60 tablet 3 03/28/2024 08/14/2024 documented in this encounter Plan of Treatment Not on file documented as of this encounter Visit Diagnoses Diagnosis Trigeminal neuralgia Chronic migraine without aura without status migrainosus, not intractable documented in this encounter Discontinued Medications Medication Sig Discontinue Reason Start Date End Da te carBAMazepine XR (TEGretol XR) 100 mg 12 hr tablet Take 1 tablet (100 mg total) by mouth 2 (two) times a day Reorder 08/31/2023 03/28/2024 topiramate (TOPAMAX) 50 mg tabletIndications:Trigemi nal neuralgia,Chronic migraine without aura without status migrainosus, not intractable TAKE 1 TABLET BY MOUTH TWICE DAILY Reorder 03/08/2024 03/28/2024 documented as of this encounter Care Teams C.O.D. Biller Relationship Specialty Start Date End Date Benny Patel MD [address] [facility] [address] [place] [address] PCP - General Internal Medicine 04/24/21 documented as of this encounter
--- OUTSIDE RECORDS SUMMARY | 2024-09-28 22:44 | XMS_ITS | Encounter Summary ---
Author Organization [facility] Address [address] [place] [address] Care Team Providers Care Accounts Payable Assistant Name Role Phone Benny Patel MD Primary Care Provider [phone] Reason for Visit * Consultation (Routine) - Closed Specialty Diagnoses / Procedures Referred By [place] Referred To Contact Neurology Diagnoses Trigeminal neuralgia Wood Lay MD [address] [place] [address] [place] [address] Phone: tel: fax: Lex Perez MD [address] [place] [address] [place] [address] Phone: tel: fax: Referral ID Status Reason Start Date Expiration Date V isits Requested Visits Authorized [id number] Closed Specialty Services Required 02/25/2023 03/26/2024 1 1 Encounter Details Date Type Department Care Team (Late st Contact Info) Description 05/31/2023 8:45 AM CDT Office Visit [facility] [address] [place] [address] Lex Perez MD [address] [place] [address] [address] [place] [address] Chronic migraine without aura without status migrainosus, not intractable (Primary Dx); Trigeminal neuralgia Social History Tobacco Use Types Packs/Day Years Used Date Smoking Tobacco: Never Assessed Tobacco Cessation:Counseling Given: No Comments Unknown Sex and Gender Information Value Date Recorded Sex Assigned at Not on file 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 Gender Identity Female 02/28/2024 6:59 PM CDT Sexual Orientation Straight 02/28/2024 6: 59 PM CDT documented as of this encounter Last Filed Vital Signs Vital Sign Reading Time Taken Comments Blood Pressure 117/80 05/31/2023 8:48 AM CDT Pulse 103 05/31/2023 8:48 AM CDT Temperature - - Respiratory Rate 18 05/31/2023 8:48 AM CDT Oxygen Saturation 97% 05/31/2023 8:48 AM CDT Inhaled Oxygen Concentration - - Weight 109.8 kg (242 lb) 05/31/2023 8:48 AM CDT Height 160 cm (5' 3 ) 05/31/2023 8:48 AM CDT Body Mass Index 42.87 05/31/2023 8:48 AM CDT documented in this encounter Ordered Prescriptions Prescription Sig Dispense Quantity Refills Last Filled Start Date End Date topiramate (TOPAMAX) 50 mg tabletIndications: Trigeminal neuralgia,Chronic migraine without aura without status migrainosus, not intractable Take half tablet (25 mg) po twice a day for one week, then one tablet po twice a day 60 tablet 3 05/31/2023 10/14/2023 documented in this encounter Progress Notes * Lex Perez MD - 05/31/2023 8:45 AM CDT Subjective/Objective 8:50 Patient ID: Dheeraj Tarango is a 37 y.o. female. Chief Complaint I am seeing this 37 y.o. female in consultation requested by Dr. Wood Lay MD for trigeminal neuralgia HPI Facial pain: Woke up in year 2020 with left facial pain. It affected lower face. It was sensitive to touch whichcaused very sharp pain. Rest of time, it is straining pain . The pain lasted for about 4-5 days continuously. She has been having intermittent facial pain once every a few months since last then. Thelast one was about 1-2 weeks ago. They were all similar and lasted for a few days. She was treated with Amoxicillin and Medro dose pack. They did not help. . Headache: The headache has been going on for about 4 years. Over the time, the headache has been getting worse. has been having headache about 3 days out of one week. The headache affected frontal region, but area around when it was bad. described the headache as throbbing pain 7/10 in severity Each headache lasted for about 4-8 hours. It was associated with nausea and photophobia. The headache was preceded by no aura. She tried Tylenol, Ibuprofen, Naproxen, Excedrin, Rizatriptan. They took edge off. No history of asthma, chest pain or kidney stone. History reviewed. No pertinent past medical history. No Known Allergies Current Outpatient Medications Medication Sig Dispense Refill atorvastatin (LIPITOR) 20 mg tablet Take 1 tablet (20 mg total) by mouth daily dapagliflozin propanediol (FARXIGA) 10 mg tablet 1 tablet (10 mg total) daily doxycycline (PERIOSTAT) 20 mg tablet Take 1 tablet (20 mg total) by mouth 2 (two) times a day glimepiride (AMARYL) 1 mg tablet metFORMIN XR (GLUCOPHAGE XR) 500 mg 24 hr tablet Take 1 tablet (500 mg total) by mouth daily with breakfast omeprazole (PriLOSEC) 40 mg capsule (Patient not taking: Reported on 05/31/2023) spironolactone (ALDACTONE) 100 mg tablet Take 1 tablet (100 mg total) by mouth daily topiramate (TOPAMAX) 50 mg tablet Take half tablet (25 mg) po twice a day for one week, then one tablet po twice a day 60 tablet 3 No current facility-administered medications for this visit. has a current medication list which includes the following prescription(s): atorvastatin, dapagliflozin propanediol, doxycycline, glimepiride, metformin xr, omeprazole, spironolactone, and topiramate. History reviewed. No pertinent family history. Social History Tobacco Use Smoking status: None Smokeless tobacco: None Substance and Sexual Activity Drug use: None Sexual activity: None Alcohol Use: Not on file BP 117/80 (BP Location: Right arm, Patient Position: Sitting) Pulse 103 Resp 18 Ht 160 cm (5'3 ) Wt 109.8 kg (242 lb) SpO2 97% BMI 42.87 kg/m?? Physical examination: Mental status: alert, speech fluent, comprehension intact, Follow command appropriately. Patient is fully oriented. Cranial nerve: ROB, corneal reflex present. EOMI. VFF by confrontation method. Face symmetrical. Motor: bulk normal, tone normal, pronator drift negative. Strength 5/5. No abnormal movement. Sensation: LT Normal and symmetrical. Assessment/Plan I am seeing this 37 y.o. female in consultation requested by Dr. Wood Lay MD for trigeminal neuralgia. Patient reported left facial pain and headache. 1. Left facial pain: Consistent with trigeminal neuralgia. MRI of brain was unremarkable. 2. Headache: Consistent with chronic migraine headache. She failed NSAID and rizatriptan. Diagnoses and all orders for this visit: Chronic migraine without aura without status migrainosus, not intractable (Primary) - topiramate (TOPAMAX) 50 mg tablet; Take half tablet (25 mg) po twice a day for one week, then onetablet po twice a day - continue Rizatriptan CHILD CARE TEAM LEAD 10 mg po q2h prn as soon as feel headache is coming. do not take more than 2 tablets in 24 hours Trigeminal neuralgia - topiramate (TOPAMAX) 50 mg tablet; Take half tablet (25 mg) po twice a day for one week, then onetablet po twice a day - instructed patient to call if she has new facial pain Review of investigations: 1. 04/23/2021 MRI of brain with/without at [facility]: No acute intracranial process. Rightcerebellar small encephalomalacia with calcification. There was no associated vasogenic edema or enhancement. Probably encephalomalacia and dystrophic calcification from prior infarct or injury. 2. 04/18/2023 CT of sinus: Mucosal thickening in the paranasal sinuses. Rightward deviation of nasalseptum. 3. 04/07/[address]: No specific etiology for the patient's symptom. 4. 09/22/[address]: Stable mildly enlarged right high internal jugular chain lymph node, likely reactive. Return in about 3 months (around 08/31/2023). documented in this encounter Plan of Treatment Not on file documented as of this encounter Visit Diagnoses Diagnosis Chronic migraine without aura without status migrainosus, not intractable- Primary Trigeminal neuralgia documented in this encounter Historical Medications * This list may reflect changes made after this encounter. doxycycline (PERIOSTAT) 20 mg tablet Take 1 tablet (20 mg total) by mouth 2 (two) times a day dapagliflozin propanediol (FARXIGA) 10 mg tablet 1 tablet (10 mg total) daily spironolactone (ALDACTONE) 100 mg tablet Take 1 tablet (100 mg total) by mouth daily atorvastatin (LIPITOR) 20 mg tablet Take 1 tablet (20 mg total) by mouth daily metFORMIN XR (GLUCOPHAGE XR) 500 mg 24 hr tablet Take 1 tablet (500 mg total) by mouth daily with breakfast glimepiride (AMARYL) 1 mg tablet 04/27/2023 omeprazole (PriLOSEC) 40 mg capsule 04/07/2023 3 added in this encounter Orders Outpatient Referral Count Last Ordered Date Fir st Ordered Date AMB REFERRAL TO NEUROLOGY 1 05/31/2023 documented in this encounter Care Teams Accounts Payable Assistant Relationship Specialty Start Date End Date Benny Patel MD [address] [facility] [address] [place] [address] PCP - General Internal Medicine 04/24/21 documented as of this encounter
--- OUTSIDE RECORDS SUMMARY | 2024-09-28 22:44 | XMS_ITS | Encounter Summary ---
Author Organization [facility] Address [address] [place] [address] Care Team Providers Care Baking Factory Worker Name Role Phone Benny Patel MD Primary Care Provider Encounter Details Date Type Department Care Team (Late st Contact Info) Description 03/02/2024 2:30 PM CDT Office Visit [facility] [address] [place] [phone] Lex Perez MD [address] [facility] [address] [place], [place] [id number] Chronic migraine without aura without status migrainosus, not intractable (Primary Dx); Trigeminal neuralgia Social History Tobacco Use Types Packs/Day Years Used Date Smoking Tobacco: Never Smokeless Tobacco: Never Tobacco Cessation:Counseling Given: Not Answered Comments Unknown Sex and Gender Information Value Date Recorded Sex Assigned at Not on file 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 Gender Identity Female 02/28/2024 6:59 PM CDT Sexual Orientation Straight 02/28/2024 6: 59 PM CDT documented as of this encounter Last Filed Vital Signs Vital Sign Reading Time Taken Comments Blood Pressure 124/75 03/02/2024 2:27 PM CDT Pulse 113 03/02/2024 2:27 PM CDT Temperature - - Respiratory Rate - - Oxygen Saturation 97% 03/02/2024 2:27 PM CDT Inhaled Oxygen Concentration - - Weight 106.1 kg (234 lb) 03/02/2024 2:27 PM CDT Height 160 cm (5' 3 ) 03/02/2024 2:27 PM CDT Body Mass Index 41.45 03/02/2024 2:27 PM CDT documented in this encounter Ordered Prescriptions Prescription Sig Dispense Quantity Refills Last Filled Start Date End Date propranoloL (INDERAL) 40 mg tablet Take one tablet po bid for one week, then 2 tablets po bid 120 tablet 3 03/02/2024 4 documented in this encounter Progress Notes * Lex Perez MD - 03/02/2024 2:30 PM CDT Subjective/Objective 8:50 Patient ID: Dheeraj Tarango is a 38 y.o. female. Chief Complaint I am seeing this 38 y.o. female in consultation requested by Dr. Benny Patel MD for trigeminalneuralgia and headache. HPI Facial pain: Since last visit on 08/31/2023, patient was added to carbamazepine 100 mg with option to titrate upto 200 mg b.i.d. prn in addition to Topamax 50 mg b.i.d.. she took it for about 4-5 days with once episode. It helped. She had 3 episodes of facial pain. Two of them did not last long. They lasted for about one day. Headache: For details, see 05/31/2023 note. Since last visit on 08/31/2023, patient has been on Topamax 50 mg b.i.d. and rizatriptan MLD as needed. Her headache is worse in the last 3 months. She has been having headache about 4 days out of one week. About one bad headache a week. Each one lasted for about whole day. Rizatriptan AFFILIATE MANAGER helped some, but not always. No past medical history on file. No Known Allergies Current Outpatient Medications Medication Sig Dispense Refill atorvastatin (LIPITOR) 20 mg tablet Take 1 tablet (20 mg total) by mouth daily carBAMazepine XR (TEGretol XR) 100 mg 12 hr tablet Take 1 tablet (100 mg total) by mouth 2 (two) times a day 60 tablet 3 dapagliflozin propanediol (FARXIGA) 10 mg tablet 1 tablet (10 mg total) daily doxycycline (PERIOSTAT) 20 mg tablet Take 1 tablet (20 mg total) by mouth 2 (two) times a day glimepiride (AMARYL) 1 mg tablet metFORMIN XR (GLUCOPHAGE XR) 500 mg 24 hr tablet Take 1 tablet (500 mg total) by mouth daily with breakfast spironolactone (ALDACTONE) 100 mg tablet Take 1 tablet (100 mg total) by mouth daily topiramate (TOPAMAX) 50 mg tablet TAKE 1 TABLET BY MOUTH TWICE DAILY 60 tablet 3 propranoloL (INDERAL) 40 mg tablet Take one tablet po bid for one week, then 2 tablets po bid 120 tablet 3 No current facility-administered medications for this visit. has a current medication list which includes the following prescription(s): atorvastatin, carbamazepine xr, dapagliflozin propanediol, doxycycline, glimepiride, metformin xr, spironolactone, topiramate, and propranolol. No family history on file. Social History Tobacco Use Smoking status: Never Smokeless tobacco: Never Substance and Sexual Activity Drug use: None Sexual activity: None Alcohol Use: Not on file BP 124/75 (BP Location: Left arm, Patient Position: Sitting) Pulse 113 Ht 160 cm (5' 3 ) Wt 106.1 kg (234 lb) SpO2 97% BMI 41.45 kg/m?? Physical examination: Mental status: alert, speech [...] trigeminal neuralgia. MRI of brain was unremarkable. Controlled with p.r.n. carbamazepine in addition to topiramate. 2. Headache: Consistent with chronic migraine headache. She failed NSAID and rizatriptan. Worse in the last 3 months. Patient has tachycardia. She had holter monitoring and echocardiogram before. It was unremarkable according to patient. Diagnoses and all orders for this visit: Chronic migraine without aura without status migrainosus, not intractable (Primary) - continue topiramate (TOPAMAX) 50 mg tablet; Take one tablet po twice a day - continue Rizatriptan AFFILIATE MANAGER 10 mg po q2h prn as soon as feel headache is coming. do not take more than 2 tablets in 24 hours - Add: Propranolol 40 mg/tablet, 1 tablets p.o. b.i.d. for 1 week, then 2 tablets p.o. b.i.d. discussed risk of hypotension and bradycardia. Instruct the patient to monitor her pulse and blood pressure. Instruct the patient to call if she feels dizzy or has significant bradycardia (HR <60) and hypotension (BP <90/60). Instructed patient to keep BP and HR diary on daily basis. Trigeminal neuralgia - topiramate (TOPAMAX) 50 mg tablet; Take half tablet (25 mg) po twice a day for one week, then onetablet po twice a day - Add Carbamazepine 100 mg bid as needed. If not better, 200 mg bid. Instructed patient to wean [id number] mg once every 3 days if starts Carbamazepine for facial pain. Past investigations: 1. 04/23/2021 MRI of brain with/without at [facility]: No acute intracranial process. Rightcerebellar small encephalomalacia [...] reactive. Return in about 3 months (around 06/02/2024). documented in this encounter Plan of Treatment Not on file documented as of this encounter Visit Diagnoses Diagnosis Chronic migraine without aura without status migrainosus, not intractable- Primary Trigeminal neuralgia documented in this encounter Care Teams Baking Factory Worker Relationship Specialty Start Date End Date Benny Patel MD [address] [place] [address] [address] [facility] [place] [id number] PCP - General Internal Medicine 04/24/21 documented as of this encounter
--- OUTSIDE RECORDS SUMMARY | 2024-09-28 22:44 | XMS_ITS | Encounter Summary ---
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 Operator Name Role Phone Benny Patel MD Primary Care Provider [phone] Encounter Details Date Type Department Care Team (Late st Contact Info) Description 06/07/2024 1:45 PM CDT Office Visit [facility] [address] [place] [phone] Lex Perez MD [address] [place] [address] Trigeminal neuralgia (Primary Dx); Chronic migraine without aura without status migrainosus, not intractable Social History Tobacco Use Types Packs/Day Years Used Date Smoking Tobacco: Never Smokeless Tobacco: Never Comments Unknown Sex and Gender Information Value Date Recorded Sex Assigned at Not on file 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 Gender Identity Female 02/28/2024 6:59 PM CDT Sexual Orientation Straight 02/28/2024 6: 59 PM CDT documented as of this encounter Last Filed Vital Signs Vital Sign Reading Time Taken Comments Blood Pressure 133/80 06/07/2024 2:05 PM CDT Pulse 88 06/07/2024 2:05 PM CDT Temperature - - Respiratory Rate - - Oxygen Saturation 100% 06/07/2024 2:05 PM CDT Inhaled Oxygen Concentration - - Weight - - Height - - Body Mass Index - - documented in this encounter Ordered Prescriptions Prescription Sig Dispense Quantity Refills Last Filled Start Date End Date propranoloL (INDERAL) 80 mg tablet TAKE 1 TABLET BY MOUTH TWICE DAILY 30 tablet 1 06/07/2024 galcanezumab-gnlm (Emgality Syringe) 120 mg/mL syringe Inject 240 mg under the skin every 30 (thirty) days for 30 days, THEN 120 mg every 30 (thirty) days. 1 mL 3 06/07/2024 09/26/2024 documented in this encounter Progress Notes * Lex Perez MD - 06/07/2024 1:45 PM CDT Subjective/Objective 8:50 Patient ID: Dheeraj Tarango is a 38 y.o. female. Chief Complaint I am seeing this 38 y.o. female in consultation requested by Dr. Benny Patel MD for trigeminalneuralgia and headache. HPI Facial pain: Since last visit on 03/02/2024, patient has been on Topamax 50 mg b.i.d. and carbamazepine 200 mg b.i.d.. she had two long left facial pain in 04/10/2024. She started Carbamazepine on 04/12/2024. She onlytake it as needed. She only took one tablet a day. It help some, but not much. Another episode on 04/30/2024. Light can trigger the episode. Got another episode on 05/24-05/25. Headache: For details, see 05/31/2023 note. Since last visit on 03/02/2024, patient has been on Topamax 50 mg b.i.d. and rizatriptan WEEDER THINNER p.r.n..She was added to propranolol 80 mg b.i.d. during last visit. It made her gag when swallow the pill.The severe headache is better, but she still has been having milder headache about 2-3 days out of one week. Each one lasted for whole day. She took Tylenol, Aleve and Ibuprofen for milder headache. She got about 4 bad headache in one month. She has to lay down in dark room. Rizatriptan WEEDER THINNER helped,but she has to take two of them. No past medical history on file. No [...] BY MOUTH TWICE DAILY 60 tablet 3 galcanezumab-gnlm (Emgality Syringe) 120 mg/mL syringe Inject 240 mg under the skin every 30 (thirty) days for 30 days, THEN 120 mg every 30 (thirty) days. 1 mL 3 propranoloL (INDERAL) 80 mg tablet TAKE 1 TABLET BY MOUTH TWICE DAILY 30 tablet 1 No current facility-administered medications for this visit. has a current medication list which includes the following prescription(s): atorvastatin, carbamazepine xr, dapagliflozin propanediol, doxycycline, glimepiride, metformin xr, spironolactone, topiramate, emgality syringe, and propranolol. No family history on file. Social History Tobacco Use Smoking status: Never Smokeless tobacco: Never Substance and Sexual Activity Drug use: None Sexual activity: None Alcohol Use: Not on file BP 133/80 (BP Location: Right arm, Patient Position: Sitting) Pulse 88 SpO2 100% Physical examination: Mental status: alert, speech fluent, [...] po twice a day - continue Rizatriptan WEEDER THINNER 10 mg po q2h prn as soon as feel headache is coming. do not take more than 2 tablets in 24 hours - continue Propranolol 80 mg/tablet, 1 tablets p.o. b.i.d. - discussed risk of hypotension and bradycardia. Instruct the patient to monitor her pulse and blood pressure. Instruct the patient to call if she feels dizzy or has significant bradycardia (HR <60) and hypotension (BP <90/60). Instructed patient to keep BP and HR diary on daily basis. - Start: Emgality 120 mg sc q30 days. Give 240 mg sample injection today. Instructed patient to do next injection in 30 days from today Trigeminal neuralgia - Continue topiramate (TOPAMAX) 50 mg tablet; Take one tablet po twice a day - Continue Carbamazepine 200 mg bid as needed. Instructed patient to wean off 100 mg once every 3 days if starts Carbamazepine for facial pain. Past investigations: 1. 04/23/2021 MRI [place] brain with[place]without [place] [facility] [place]: No acute intracranial process. Rightcerebellar small encephalomalacia [...] reactive. Return in about 3 months (around 09/07/2024). documented in this encounter Plan of Treatment Not on file documented as of this encounter Visit Diagnoses Diagnosis Trigeminal neuralgia- Primary Chronic migraine without aura without status migrainosus, not intractable documented in this encounter Discontinued Medications Medication Sig Discontinue Reason Start Date End Da te propranoloL (INDERAL) 80 mg tablet TAKE 1 TABLET BY MOUTH TWICE DAILY Reorder 05/28/2024 06/07/2024 documented as of this encounter Care Teams Lockstitch Tunnel Elastic Operator Relationship Specialty Start Date End Date Benny Patel MD [address] [facility] [address] [place] [address] PCP - General Internal Medicine 04/24/21 documented as of this encounter
--- OUTSIDE RECORDS SUMMARY | 2024-09-28 22:44 | XMS_ITS | Clinical Summary ---
Author Organization [facility] Medical Office Building B Address [address] [place] [address] Care Team Providers Care Handle Sewer Name Role Phone Benny Patel MD Primary Care Provider [phone] Allergies No known active allergies Medications glimepiride (AMARYL) 1 mg tablet 3 Active metFORMIN XR (GLUCOPHAGE XR) 500 mg 24 hr tablet Take 1 tablet (500 mg total) by mouth daily with breakfast Active atorvastatin (LIPITOR) 20 mg tablet Take 1 tablet (20 mg total) by mouth daily Active spironolactone (ALDACTONE) 100 mg tablet Take 1 tablet (100 mg total) by mouth daily Active dapagliflozin propanediol (FARXIGA) 10 mg tablet 1 tablet (10 mg total) daily Active doxycycline (PERIOSTAT) 20 mg tablet Take 1 tablet (20 mg total) by mouth 2 (two) times a day Active carBAMazepine XR (TEGretol XR) 100 mg 12 hr tablet Take 1 tablet (100 mg total) by mouth 2 (two) times a day 60 tablet 3 4 03/28/20 25 Active propranoloL (INDERAL) 80 mg tablet TAKE 1 TABLET BY MOUTH TWICE DAILY 30 tablet 1 4 Active topiramate (TOPAMAX) 50 mg tabletIndicatio ns:Trigeminal neuralgia,Chron ic migraine without aura without status migrainosus, not intractable TAKE 1 TABLET BY MOUTH TWICE DAILY 60 tablet [address] (CYMBALTA) 60 mg capsule 4 Active ketoconazole (NIZORAL) 2 % cream 4 Active metroNIDAZOLE (METROGEL) 0.75 % gel 4 Active galcanezumab-gn lm 120 mg/mL pen injector Inject 120 mg under the skin every 30 (thirty) days 1 mL 5 4 Active galcanezumab-gn lm (Emgality Syringe) 120 mg/mL syringe Inject 240 mg under the skin every 30 (thirty) days for 30 days, THEN 120 mg every 30 (thirty) days. 1 mL 3 4 09/26/20 24 Discontinu ed(Alterna te therapy) Active Problems Problem Noted Date Diagnosed Date Trigeminal neuralgia 05/31/2023 Chronic migraine without aur a without status migrainosus, not intractable 05/31/2023 Encounters Date Type Department Care Team Description 09/26/2024 1:15 PM SUPERINTENDENT METER TESTS Office Visit [facility] [address] [place] [address] Lex Perez MD Trigeminal neuralgia (Primary Dx); Chronic migraine without aura without status migrainosus, not intractable from Last 3 Months Social History Tobacco Use Types Packs/Day Years Used Date Smoking Tobacco: Never Smokeless Tobacco: Never Tobacco Cessation:Counseling Given: Not Answered Comments Unknown Sex and Gender Information Value Date Recorded Sex Assigned at Not on file Legal Sex Female 6:06 PM SUPERINTENDENT METER TESTS Gender Identity Female 02/28/2024 6:59 PM CDT Sexual Orientation Straight 02/28/2024 6: 59 PM CDT Obstetrics History Last Filed Vital Signs Vital Sign Reading Time Taken Comments Blood Pressure 137/91 09/26/2024 1:28 PM SUPERINTENDENT METER TESTS Pulse 105 09/26/2024 1:28 PM SUPERINTENDENT METER TESTS Temperature - - Respiratory Rate 18 05/31/2023 8:48 AM CDT Oxygen Saturation 98% 09/26/2024 1:28 PM SUPERINTENDENT METER TESTS Inhaled Oxygen Concentration - - Weight 109.9 kg (242 lb 3.2 oz) 09/26/2024 1:28 PM SUPERINTENDENT METER TESTS Height 160 cm (5' 2.99 ) 09/26/2024 1:28 PM SUPERINTENDENT METER TESTS Body Mass Index 42.91 09/26/2024 1:28 PM SUPERINTENDENT METER TESTS Plan of Treatment Health Maintenance Due Date Last Done Comments Cervical Cancer Screening 1985 Depression Screening 1985 Hepatitis C Screening 1985 Varicella Vaccines (1 of 2 - 13+ 2-dose series) 1998 Hepatitis B Screening 12/31/2003 Regular Well Visit/Exam 18-64 12/31/2003 Covid-19 Vaccine (4 - 2023-2 5 season) 2024 10/16/2021, 12/26/2020, 12/05/2020 Influenza Vaccine (#1) 2024 , 08/24/2014 DTaP/Tdap/Td Vaccine (3 - Td or Tdap) 03/04/2031 03/04/2021, 12/17/2013 HPV Vaccines Aged Out No longer eligi ble based on patient's age to complete this topic Pneumococcal vaccine <65 Aged Out No longer eligible based on patient's age to complete this topic [place] Care Teams Handle Sewer Relationship Specialty Start Date End Date Benny Patel MD [address] [facility] [address] [facility] [address] [place] [address] PCP - General Internal Medicine 04/24/21
--- OUTSIDE RECORDS SUMMARY | 2024-09-28 22:44 | XMS_ITS | Encounter Summary ---
Author Organization [facility] Healthcare Address [address] [place] [address] Care Team Providers Care Baker Apprentice Name Role Phone Benny Patel MD Primary Care Provider [phone] Encounter Details Date Type Department Care Team (Late st Contact Info) Description 08/31/2023 3:00 PM PAPER PRODUCTS MACHINE OPERATOR Office Visit [facility] [address] [facility] [address] [place] [phone] Lex Perez MD [address] [place] [address] Chronic migraine without aura without status migrainosus, not intractable (Primary Dx); Trigeminal neuralgia Social History Tobacco Use Types Packs/Day Years Used Date Smoking Tobacco: Never Smokeless Tobacco: Never Comments Unknown Sex and Gender Information Value Date Recorded Sex Assigned at Not on file Legal Sex Female 6:06 PM PAPER PRODUCTS MACHINE OPERATOR Gender Identity Female 02/28/2024 6:59 PM CDT Sexual Orientation Straight 02/28/2024 6: 59 PM CDT documented as of this encounter Last Filed Vital Signs Vital Sign Reading Time Taken Comments Blood Pressure 133/84 08/31/2023 2:57 PM PAPER PRODUCTS MACHINE OPERATOR Pulse 121 08/31/2023 2:57 PM PAPER PRODUCTS MACHINE OPERATOR Temperature - - Respiratory Rate - - Oxygen Saturation 98% 08/31/2023 2:57 PM PAPER PRODUCTS MACHINE OPERATOR Inhaled Oxygen Concentration - - Weight 109.8 kg (242 lb) 08/31/2023 2:57 PM PAPER PRODUCTS MACHINE OPERATOR Height 160 cm (5' 3 ) 08/31/2023 2:57 PM PAPER PRODUCTS MACHINE OPERATOR Body Mass Index 42.87 08/31/2023 2:57 PM PAPER PRODUCTS MACHINE OPERATOR documented in this encounter Ordered Prescriptions Prescription Sig Dispense Quantity Refills Last Filled Start Date End Date carBAMazepine XR (TEGretol XR) 100 mg 12 hr tablet Take 1 tablet (100 mg total) by mouth 2 (two) times a day 60 tablet 3 08/31/2023 03/28/2024 documented in this encounter Progress Notes * Lex Perez MD - 08/31/2023 3:00 PM CST Subjective/Objective 8:50 Patient ID: Dheeraj Tarango is a 37 y.o. female. Chief Complaint I am seeing this 37 y.o. female in consultation requested by Dr. Benny Patel MD for trigeminalneuralgia and headache. HPI Facial pain: Since last visit on 05/31/2023, she had about 4 episodes of left facial pain. It affected left lowerface from ear down jaw. Each one lasted for about 24-48 hours. It was constant sore pain 6-10/10. Headache: For details, see 05/31/2023 note. Since last visit on 05/31/2023, patient was put on Topamax 50 mg b.i.d. and rizatriptan DANCE COSTUME DESIGNER as needed. She is having migraine headache about once a week since last visit. Rizatriptan DANCE COSTUME DESIGNER helped. She also got mild headache sporadically. History reviewed. No pertinent past medical history. [...] po twice a day 60 tablet 3 carBAMazepine XR (TEGretol XR) 100 mg 12 hr tablet Take 1 tablet (100 mg total) by mouth 2 (two) times a day 60 tablet 3 omeprazole (PriLOSEC) 40 mg capsule (Patient not taking: Reported on 05/31/2023) No current facility-administered medications for this visit. has a current medication list which includes the following prescription(s): atorvastatin, dapagliflozin propanediol, doxycycline, glimepiride, metformin xr, spironolactone, topiramate, carbamazepine xr, and omeprazole. History reviewed. No pertinent family history. Social History Tobacco Use Smoking status: Never Smokeless tobacco: Never Substance and Sexual Activity Drug use: None Sexual activity: None Alcohol Use: Not on file BP 133/84 Pulse 121 Ht 160 cm (5' 3 ) Wt 109.8 kg (242 lb) SpO2 98% BMI 42.87 kg/m?? Physical examination: Mental status: [...] trigeminal neuralgia. MRI of brain was unremarkable. Not controlled. 2. Headache: Consistent with chronic migraine headache. She failed NSAID and rizatriptan. Better. Diagnoses and all orders for this visit: Chronic migraine without aura without status migrainosus, not intractable (Primary) - topiramate (TOPAMAX) 50 mg tablet; Take half tablet (25 mg) po twice a day for one week, then onetablet po twice a day - continue Rizatriptan DANCE COSTUME DESIGNER 10 mg po q2h prn as soon [...] 200 mg bid. Instructed patient to wean [id number] mg once every 3 days if starts Carbamazepine for facial pain. Review of investigations: 1. 04/23/2021 MRI of brain with/without at [facility]: No acute intracranial process. Rightcerebellar small encephalomalacia [...] reactive. Return in about 3 months (around 12/01/2023). R PRODUCTS MACHINE OPERATOR documented in this encounter Plan of Treatment Not on file documented as of this encounter Visit Diagnoses Diagnosis Chronic migraine without aura without status migrainosus, not intractable- Primary Trigeminal neuralgia documented in this encounter Discontinued Medications Medication Sig Discontinue Reason Start Date End Da te omeprazole (PriLOSEC) 40 mg capsule 04/07/2023 09/03/2023 documented as of this encounter Care Teams Baker Apprentice Relationship Specialty Start Date End Date Benny Patel MD [address] [facility] [address] [place] [address] PCP - General Internal Medicine 04/24/21 documented as of this encounter
--- OUTSIDE RECORDS SUMMARY | 2024-09-28 22:44 | XMS_ITS | Referral Summary ---
Author Organization [facility] Medical Office Building B Address [address] [place] [address] Care Team Providers Care Cosmetology Professor Name Role Phone Benny Patel MD Primary Care Provider [phone] Encounters Date Type Department Care Team Description 09/26/2024 1:15 PM SENIOR COMMERCIAL LOAN OFFICER Office Visit [facility] [address] [facility] [address] [place] [address] Lex Perez MD Trigeminal neuralgia (Primary Dx); Chronic migraine without aura without status migrainosus, not intractable from Last 3 Months Allergies No known active allergies Medications glimepiride [...] a without status migrainosus, not intractable 05/31/2023 Social History Tobacco Use Types Packs/Day Years Used Date Smoking Tobacco: Never Smokeless Tobacco: Never Tobacco Cessation:Counseling Given: Not Answered Comments Unknown Sex and Gender Information Value Date Recorded Sex Assigned at Not on file Legal Sex Female 6:06 PM SENIOR COMMERCIAL LOAN OFFICER Gender Identity Female 02/28/2024 6:59 PM CDT Sexual Orientation Straight 02/28/2024 6: 59 PM CDT Last Filed Vital Signs Vital Sign Reading Time Taken Comments Blood Pressure 137/91 09/26/2024 1:28 PM SENIOR COMMERCIAL LOAN OFFICER Pulse 105 09/26/2024 1:28 PM SENIOR COMMERCIAL LOAN OFFICER Temperature - - Respiratory Rate 18 05/31/2023 8:48 AM CDT Oxygen Saturation 98% 09/26/2024 1:28 PM SENIOR COMMERCIAL LOAN OFFICER Inhaled Oxygen Concentration - - Weight 109.9 kg (242 lb 3.2 oz) 09/26/2024 1:28 PM SENIOR COMMERCIAL LOAN OFFICER Height 160 cm (5' 2.99 ) 09/26/2024 1:28 PM SENIOR COMMERCIAL LOAN OFFICER Body Mass Index 42.91 09/26/2024 1:28 PM SENIOR COMMERCIAL LOAN OFFICER Plan of Treatment Not on file Insurance [place] Member Subscriber Plan / Payer (Ef fective 2022-Present) Name:Dheeraj Tarango Relation to Subscriber:Self Name:LevyEdouard fostermeena Blackman Payer ID:[id number] (NAIC) Type:HEALTHCARE/EXCHANGE Address: [place] [id number] [place] Care Teams Cosmetology Professor Relationship Specialty Start Date End Date Benny Patel MD [address] [place] [address] PCP - General Internal Medicine 04/24/21
--- OUTSIDE RECORDS SUMMARY | 2024-09-28 22:44 | XMS_ITS | Encounter Summary ---
Author Organization [facility] Healthcare Address [address] [place] [address] Care Team Providers Care Investigation Division Captain Name Role Phone Benny Patel MD Primary Care Provider [phone] Encounter Details Date Type Department Care Team (Late st Contact Info) Description 11/11/2023 Telephone [facility] [address] [facility] [address] [place] [address] Yudith Severino MA Social History Tobacco Use Types Packs/Day Years Used Date Smoking Tobacco: Never Smokeless Tobacco: Never Comments Unknown Sex and Gender Information Value Date Recorded Sex Assigned at Not on file Legal Sex Female 6:06 PM MANAGER APPLICATION Gender Identity Female 02/28/2024 6:59 PM CDT Sexual Orientation Straight 02/28/2024 6: 59 PM CDT documented as of this encounter Miscellaneous Notes * Telephone Encounter - Yudith Severino MA - 11/14/2023 11:03 AM CST Spoke with patient. GER APPLICATION * Telephone Encounter - Yudith Severino MA - 11/11/2023 2:47 PM CST Patient would like confirm how to stop taking Carbamazepine. If she gets to the point where she is weaning off of it. She would take 100 mg daily every three days but she would like to know how long she would need to take it for. GER APPLICATION documented in this encounter Plan of Treatment Not on file documented as of this encounter Visit Diagnoses Not on filedocumented in this encounter Care Teams Investigation Division Captain Relationship Specialty Start Date End Date Benny Patel MD [address] [facility] [address] [place] [id number] PCP - General Internal Medicine 04/24/21 documented as of this encounter
--- OUTSIDE RECORDS SUMMARY | 2024-09-28 22:45 | XMS_ITS | Continuity of Care Document ---
Author Organization [facility] Address [address] [place] [address] Exec [address]ive [facility] [address] [place] [address] Phone Care Team Providers Care Feed Mill Supervisor Name Role Phone Arcelia Angel Unavailable Unavailable Advance Directives Directive Yes / No Effective Date File Name No Information Encounters Encounter Description Practice Location Reason(s) For Visit Diagnoses Date Provider Providers Copied on Encounter [facility], [address], [place], [place], [id number], [place] tel:[phone] [facility] No Information [address]. [address] [facility] , [address], [place], [address], [place]. tel:[phone] Family History Family Member Type Diagnosis Age At Onset No Information Payers Payer name Insurance type Covered republican ID Authoriza tineeraj(s) Health[employer] SOI CI [id number] Social History Type Description Quantity Date Captured Comments Sex Female Smoking Status No Information Chief Complaint And Reason For Visit No Information Reason For Referral Reason For Referral No Information History Of Present Illness Encounter Date Complaint History Of Prese nt Illness No Information Functional Status Date Functional Assessmen t No Information Instructions Date Instruction Additional Infor mation No Information Assessments Type Assessment Date No Information Patient Care Teams Name Effective Dates (start - stop) Status Members No Information
--- OUTSIDE RECORDS SUMMARY | 2024-09-28 22:45 | XMS_ITS | Patient Health Record ---
Author Organization [facility] Address [address] [place] [address] Care Team Providers Care Ore Digger Name Role Phone Murtaza Jo Primary Care Provider Allergies No Known Allergies Reason For Referral No Information Medications Medication SIG (Take, Route, Frequency, Duration) Notes Start Date End Date Status Atorvastatin Calcium 10 MG TAKE 1 TABLET BY MOUTH DAILY for 90 Active DULoxetine HCl 60 MG Oral for 90 Days Active metFORMIN HCl ER 500 MG 2 tablets with e vening meal Orally Once a day for 30 day(s) Active Glimepiride 1 MG TAKE 1 TABLET BY CYNTHIA TH EVERY MORNING WITH BREAKFAST for 90 Active Doxycycline Hyclate 20 MG Oral for 45 Days Active clomiPRAMINE HCl Not -Taking Rizatriptan Benzoate Active Doxycycline Hyclate 20 MG Oral for 45 Days Active Topiramate 50 MG Oral for 22 Days Active Betamethasone Dipropionate 0.05 % External for 30 Days Active Farxiga 10 MG 1 tablet Orally Once a day for 30 day(s) Active Topiramate 50 MG Oral for 22 Days Active Social History Tobacco Use: Social History Observation Description Date Details (start date - stop date) Never Smoker NA - NA Tobacco Control (Standard) Question Answer Notes Tobacco use: Nonsmoker Problems Problem Type SNOMED Code ICD Code Onset Dates Problem Status W/U Status Risk Notes Problem Hyperlipidemia (05688370) Hyperlipidemia (E78.5) Active confirmed Problem Depression (512737738) Depression (F32.9) Active confirmed Problem Migraine (53770440) Migraine (G43.909) Active confirmed Problem History of psychiatric disorder (790606596) History of ADHD (Z86.59) Active confirmed Problem Psoriasis (5952285) Psoriasis (L40.9) Active confirmed Problem Rosacea (717499884) Rosacea (L71.9) Active confirmed Problem Diabetes mellitus (28117822) Diabetes mellitus (E11.9) Active confirmed Problem Microscopic colitis (873893177) Microscopic colitis, unspecified (K52.839) Active confirmed Vital Signs Heart Rate 101 /min 06/08/2024 Respiratory Rate 16 /min 06/08/2024 Blood pressure diastolic 88 mm Hg 06/08/2024 Oximetry 98 % 06/08/2024 Height 64 in 06/08/2024 Blood pressure systolic 136 mm Hg 06/08/2024 Weight 235.6 lbs 06/08/2024 BMI 40.44 kg/m2 06/08/2024 Encounters Encounter Location Date Provider Diagnosis [address] [address] 06/18/2024 Murtaza Jo [address] [place] [address] 06/08/2024 Murtaza Jo Diabetes mellitus E1 1.9 ; Hyperlipidemia E78.5 ; Depression F32.9 ; History of ADHD Z86.59 ; Nutritional counseling Z71.3 ; Migraine G43.909 ; Exposure to potential infection Z20.9 ; Microscopic colitis, unspecified K52.839 ; Psoriasis L40.9 ; Rosacea L71.9 and Breast cancer screening by mammogram Z12.31 Assessments Encounter Date Diagnosis (ICD Code) Assessment Notes Treatment Notes Treatment Clinical Notes Section Notes 06/08/2024 Hyperlipidemia (ICD-10 - E78.5) CONTINUE MEDS PENDING LABS 06/08/2024 Diabetes mellitus (ICD-10 - E11.9) CONTINUE MEDS PENDING LABS JEANNA SIGNED FOR RECORDS FROM DR. SANDOVAL 06/08/2024 Depression (ICD-10 - F32.9) NUMBER GIVEN TO CALL FOR APPT WITH [facility] 06/08/2024 History of ADHD (ICD-10 - Z86.59) NUMBER GIVEN TO CALL FOR APPT WITH [facility] 06/08/2024 Nutritional counseling (ICD-10 - Z71.3) 06/08/2024 Migraine (ICD-10 - G43.909) CONTINUE F/U WITH NEUROLOGY 06/08/2024 Exposure to potential infection (ICD-10 - Z20.9) 06/08/2024 Microscopic colitis, unspecified (ICD-10 - K52.839) CONTINUE SYMPTOM MANAGEMENT AND F/U WITH GI 06/08/2024 Psoriasis (ICD-10 - L40.9) CONTINUE F/U WITH DERM 06/08/2024 Rosacea (ICD-10 - L71.9) CONTINUE F/U WITH DERM 06/08/2024 Breast cancer screening by mammogram (ICD-10 - Z12.31) Plan Of Treatment Future Test Test Name Order Date Mammogram Breast - Bilateral Screening 0 06/08/2024 Insurance Providers Payer Name Payer Address Payer Phone Subscriber Number Group Number Insured Name Patient Relationship to Insured Coverage Start Date Coverage End Date [facility] [address] [place] [address] [id number] Dheeraj Tarango Self - patient is the insured 4 Medical (General) History Surgical History Surgery Date(Month/Year) appendectomy cholecystectomy tonsillectomy Hospitalization History Reason Date(Month/Year)
--- OUTSIDE RECORDS SUMMARY | 2024-09-29 01:20 | XMS_ITS | Continuity of Care Document ---
Author Organization [facility] Address [address] [place] [address] [facility] [address] [place] [address] Phone Care Team Providers Care Candle Wrapper Name Role Phone Arcelia Angel Unavailable Unavailable Advance Directives Directive Yes / No Effective Date File Name No Information Encounters Encounter Description Practice Location Reason(s) For Visit Diagnoses Date Provider Providers Copied on Encounter [facility], [address], [place], [place], [id number], [place] tel:[phone] [facility] No Information [address]. [address] [facility] , [address], [place], [address], [place]. tel:[phone] Family History Family Member Type Diagnosis Age At Onset No Information Payers Payer name Insurance type Covered alliance party ID Authoriza tineeraj(s) [employer] SOI CI [id number] Social History Type Description Quantity Date Captured [...]
--- OUTSIDE RECORDS SUMMARY | 2024-09-29 01:20 | XMS_ITS ---
Author Organization [facility] Address [address] [place] [address] Care Team Providers Care Salesperson Wigs Name Role Phone Murtaza Jo Primary Care Provider Allergies No Known Allergies REASON FOR VISIT Establish PCP Medications Medication SIG (Take, Route, Frequency, Duration) Notes Start Date End Date Status Atorvastatin Calcium Active DULoxetine HCl 60 MG Oral for 90 Days Active Atorvastatin Calcium 10 MG Oral for 90 Days Active Glimepiride 1 MG Oral for 90 Days Active metFORMIN HCl ER 500 MG 2 tablets with e vening meal Orally Once a day for 30 day(s) Active Doxycycline Hyclate 20 MG Oral for 45 Days Active clomiPRAMINE HCl Not -Taking Rizatriptan Benzoate Active Farxiga 10 MG 1 tablet Orally Once a day for 30 day(s) Active Topiramate 50 MG Oral for 22 Days Active Doxycycline Hyclate 20 MG Oral for 45 Days Active Topiramate 50 MG Oral for 22 Days Active Betamethasone Dipropionate 0.05 % External for 30 Days Active Social History Tobacco Use: Social History Observation Description Date Details (start date - stop date) Never Smoker NA - NA Tobacco Control (Standard) Question Answer Notes Tobacco use: Nonsmoker Problems Problem Type SNOMED Code ICD Code Onset Dates Problem Status W/U Status Risk Notes Problem Diabetes mellitus (93243388) Diabetes mellitus (E11.9) Active confirmed Problem Hyperlipidemia (37887679) Hyperlipidemia (E78.5) Active confirmed Problem Depression (200826527) Depression (F32.9) Active confirmed Problem History of psychiatric disorder (036055023) History of ADHD (Z86.59) Active confirmed Problem Migraine (91449392) Migraine (G43.909) Active confirmed Problem Microscopic colitis (047498319) Microscopic colitis, unspecified (K52.839) Active confirmed Problem Psoriasis (1488869) Psoriasis (L40.9) Active confirmed Problem Rosacea (013456257) Rosacea (L71.9) Active confirmed Vital Signs Height 64 in 06/08/2024 Weight 235.6 lbs 06/08/2024 BMI 40.44 kg/m2 06/08/2024 Blood pressure systolic 136 mm Hg 06/08/20 24 Blood pressure diastolic 88 mm Hg 024 Heart Rate 101 /min 06/08/2024 Oximetry 98 % 06/08/2024 Respiratory Rate 16 /min 06/08/2024 Encounters Encounter Location Date Provider Diagnosis [place] [address] [facility] [place] [address] 06/08/2024 Murtaza Jo Diabetes mellitus E1 1.9 [...] Notes Treatment Clinical Notes Section Notes 06/08/2024 Diabetes mellitus (ICD-10 - E11.9) CONTINUE MEDS PENDING LABS JEANNA SIGNED FOR RECORDS FROM DR. SANDOVAL 06/08/2024 Hyperlipidemia (ICD-10 - E78.5) CONTINUE MEDS PENDING LABS 06/08/2024 Depression (ICD-10 - F32.9) NUMBER GIVEN TO CALL FOR APPT WITH [facility] 06/08/2024 History of ADHD (ICD-10 - Z86.59) NUMBER GIVEN TO CALL FOR APPT WITH [facility] 06/08/2024 Nutritional counseling (ICD-10 - Z71.3) [...] Mammogram Breast - Bilateral Screening 0 06/08/2024 Next Appt Details Follow Up: 4 Months, Reason: DIABETES, WT Progress Notes * Dheeraj HELM EDOB: [birth year] (38 yo M)Acc No.[id number]:06/08/2024 Progress Notes Patient:?Dheeraj HELM Provider:?Murtaza Jo :1985???Age:38 Y???Sex:Male Brian e:06/08/2024 Address:[address] [place] [address] , [place] [address] Pcp:Elena Barrett Check In:01:[address]GE Subjective: * Chief Complaints: * ???Establish PCP * HPI: ???Depression Screening:?PHQ-9?Little interest or pleasure in doing things?Not at all ?Feeling down, depressed, or hopeless?Not at all ?Trouble falling or staying asleep, or sleeping too much?Not at all ?Feeling tired or having little energy?Not at all ?Poor appetite or overeating?Not at all ?Feeling bad about yourself or that you are a failure, or have let yourself or your family down?Not at all ?Trouble concentrating on things, such as reading the newspaper or watching television?Not at all ?Moving or speaking so slowly that other people could have noticed; or the opposite, being so fidgety or restless that you have been moving around a lot more than usual?Not at all ?Thoughts that you would be better off or of hurting yourself in some way?Not at all ?Total Score?0 ???Screening:?[place] Suicide Severity Rating Scale (LF)?Do you want to initiate with?Screener form ?1. Wish to be : Have you wished you were or wished you could go to sleep and not wake up??No ?2. Suicidal Thoughts: Have you actually had any thoughts of killing yourself??No ?6. Suicide Behaviour: Have you ever done anything,started to do anything, or prepared to end your life??No ?Interpretation:?Low Risk ???CSSRS Interpretation and Follow Up Plan:?CSSRS Interpretation and Follow Up Plan. ?CSSRS Interpretation and Follow Up Plan?CSSRS Screen documented using SF?Yes ?Moderate or High risk requires selection of a follow up plan?CSSRS No/Low: intervention not needed at this time ???Interim History:? ESTABLISH PCP. WAS SEEING DR. SANDOVAL BUT HAS TRAINING TECHNICIAN PRACTICE AND DID NOT WANT TO PAY FEES.? ANXIETY AND DEPRESSION. TAKES CLOMIPRAMINE WITH IMPROVEMENT. RECENTLY FOUND OLD EVAL FROM AGE 15. PSYCH THEN DX ADHD. BUT MOTHER NEVER TOOK HER FOR F/U OR TX. SHE STARTS AND STOPS MULTIPLE TASKS AND DOES EACH FOR 10-15 MIN UNTIL SHE COMPLETES THEM ALL. DESCRIBES THIS 'DIFFICULT.' DM2 DX 2021. WEIGHT LOSS WITH METFORMIN ER AND FARXIGA. COULD NOT TOLERATE REGULAR METFORMIN DUE TO DIARRHEA. WAS TAKING OZEMPIC BUT INSURANCE COAY WAS $600/MO.? HX MICROSCOPIC COLITIS. HAD DIARRHEA AND ABD CRAMPS SINCE ADOLESCENCE. HAD APPENDIX REMOVED BUT SYMPTOMS RETURNED IN LESS THAN ONE YEAR. HAD REGINALD IN 2009. STILL HAD SX'S. [address] ABAD ESTABLISHED DX OF MICROSCOPIC COLITIS. RECOMMENDED MANAGEMENT WITH DIET AND TREAT CRAMPS AND DIARRHEA NEEDED. CURRENTLY DOING FAIRLY WELL WITH MINIMAL ISSUES. NO BLEEDING.? MIGRAINES TREATED BY NEUROLOGIST. NO FOCAL NEURO SX'S WITH THEM. AVOIDS TRIGGERS. PREVENTIVE TOPAMAX HELPED SOME. YESTERDAY GOT RX FOR CRGP ANTAGONIST. * ROS:?Basic ROS:?Weight loss?Admits.?Admits?Anxiety.?Admits?Psychiatric Condition.? * Medical History:? * Surgical History:?appendecto my cholecystectomy tonsillectomy * Hospitalization/Major Diagno stic Procedure:?Denies Past Hospitalization * Family History:?Father: cal blackman.?Mother: alive.? Adopted. 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 ???Tobacco Use:?Tobacco Control (Standard)?Tobacco use:?Nonsmoker * Medications:?TakingRizatript an Benzoate Doxycycline Hyclate 20 MG Tablet Oral Topiramate 50 MG Tablet Oral Farxiga 10 MG Tablet 1 tablet Orally Once a day Atorvastatin Calcium metFORMIN HCl ER 500 MG Tablet Extended Release 24 Hour 2 tablets with evening meal Orally Once a day Glimepiride 1 MG Tablet Oral Atorvastatin Calcium 10 MG Tablet Oral DULoxetine HCl 60 MG Capsule Delayed Release Particles Oral Betamethasone Dipropionate 0.05 % Cream External Topiramate 50 MG Tablet Oral Doxycycline Hyclate 20 MG Tablet Oral Taking Rizatriptan Benzoate Taking Doxycycline Hyclate 20 MG Tablet Oral Taking Topiramate 50 MG Tablet Oral Taking Farxiga 10 MG Tablet 1 tablet Orally Once a day Taking Atorvastatin Calcium Taking metFORMIN HCl ER 500 MG Tablet Extended Release 24 Hour 2 tablets with evening meal Orally Once a day Taking Glimepiride 1 MG Tablet Oral Taking Atorvastatin Calcium 10 MG Tablet Oral Taking DULoxetine HCl 60 MG Capsule Delayed Release Particles Oral Taking Betamethasone Dipropionate 0.05 % Cream External Taking Topiramate 50 MG Tablet Oral Taking Doxycycline Hyclate 20 MG Tablet Oral Not-TakingclomiPRAMINE HCl Not- Taking clomiPRAMINE HCl * Allergies:?N.K.D.A.no[Allerg ies Verified] Objective: * Vitals:?Wt:235.6, Ht:64, BMI :40.44, BP:136/88, HR:101, Oxygen sat %:98, RR:16, LMP:IUD, Pain scale:0. * Examination: ???General Examination: ?GENERAL APPEARANCE:?well developed, well nourished, in no acute distress.?HEAD:?normocephalic, atraumatic.?EYES:?PERRLA, sclera and conjunctiva clear.?EARS? External ears intact.?NOSE:?nares patent, no lesions, septum intact.?ORAL CAVITY:?mucosa moist.?THROAT:?no erythema, no exudate, pharynx normal.?NECK/THYROID:?no JVD, no goiter.?SKIN:?warm and dry, no rashes.?HEART:?regular rate and rhythm, no murmurs.?LUNGS:?respirations regular and easy, clear to auscultation bilaterally.?ABDOMEN:?bowel sounds present, soft, nontender, nondistended, no masses palpable, no organomegaly .?MUSCULOSKELETAL:?no joint deformity, swelling, redness, or warmth , GEM upper and lower extremities.?EXTREMITIES:?no clubbing, cyanosis, or edema.?NEUROLOGIC:?cranial nerves 2-12 grossly intact.? Assessment: * Assessment: 1.?Hyperlipidemia - E78.5??? 2.?Diabetes mellitus - E11.9 (Primary)???3.?Depression - F32.9???4.?History of ADHD - Z86.59???5.?Nutritional counseling - Z71.3???6.?Migraine - G43.909?? 7.?Exposure to potential infection - Z20.9???8.?Microscopic colitis, unspecified - K52.839???9.?Psoriasis - L40.9???10.?Rosacea - L71.9???11.?Breast cancer screening by mammogram - Z12.31??? Plan: * Treatment: 2.?Hyperlipidemia?LAB: Lipid Panel* (Ordered for 06/08/2024) Clinical Notes: CONTINUE MEDS PENDING LABS?? 3.?Depression? Clinical Notes: NUMBER GIVEN TO CALL FOR APPT WITH [facility]?? 4.?History of ADHD? Clinical Notes: NUMBER GIVEN TO CALL FOR APPT WITH [facility]?? 5.?Migraine? Clinical Notes: CONTINUE F/U WITH NEUROLOGY?? 6.?Exposure to potential inf ection?LAB: HIV Screen *HIV 1, 2 Ab, p24 Ag (Ordered for 06/08/2024) ?LAB: Hepatitis B Surface Antigen (HBsAg Screen) (Ordered for 06/08/2024) 7.?Microscopic colitis, unsp ecified?LAB: CBC With Differential/Platelet* (Ordered for 06/08/2024) ?LAB: C-Reactive Protein, Quant (Ordered for 06/08/2024) Clinical Notes: CONTINUE SYMPTOM MANAGEMENT AND F/U WITH GI?? 8.?Psoriasis? Clinical Notes: CONTINUE F/U WITH DERM?? 9.?Rosacea? Clinical Notes: CONTINUE F/U WITH DERM?? 10.?Breast cancer screening by mammogram?Imaging: Mammogram Breast - Bilateral Screening (Ordered for 06/08/2024) * Recommended Wellness and Pre vention Guidelines: * ?Status ?Alert ?Last Done ?Next Due ?Action Taken ?NONCOMPLIANT ?HIV screening ?- ?06/08/2024 ?- * Procedure Codes:?3008F BODY MASS INDEX [id number] MEDICAL NUTRITION, INDIV, HD9927V TOBACCO NON-USER * Preventive Medicine:? ??Counseling:?Care goal follow-up plan:?BMI management provided?Yes ?Above Normal BMI Follow-up?Lifestyle education regarding diet * Follow Up:?4 Months (Reason: DIABETES, WT) * * Sign off status: Completed true * Provider:?Murtaza Jo Date:? 4 Generated for Emi gerard/Jia/eTransmitting on:?09/29/2024 01:[address]GE History and Physical Notes * HPI (History of Present Illness) Category Sub-Category Detail Notes Category Not es Depression Screening PHQ-9 Little inte rest or pleasure in doing things: Not at all Feeling down, depressed, or hopeless: No t at all Trouble falling or staying asleep, or sl eeping too much: Not at all Feeling tired or having little energy: N ot at all Poor appetite or overeating: Not at all Feeling bad about yourself o r that you are a failure, or have let yourself or your family down: Not at all Trouble concentrating on thi ngs, such as reading the newspaper or watching television: Not at all Moving or speaking so slowly that other people could have noticed; or the opposite, being so fidgety or restless that you have been moving around a lot more than usual: Not at all Thoughts that you would be b obi off or of hurting yourself in some way: Not at all Total Score: 0 Screening [place] Suicide Sev erity Rating Scale (LF) Do you want to initiate with: Screener form ?1. Wish to be : Have yo u wished you were or wished you could go to sleep and not wake up?: No ?2. Suicidal Thoughts: Have you actually had any thoughts of killing yourself?: No ?6. Suicide Behaviour: Have you ever done anything,started to do anything, or prepared to end your life?: No ?Interpretation:: Low Risk CSSRS Interpretation and Follow Up Plan CSSRS Interpretation and Follow Up Plan CSSRS Screen documented using SF: Yes Moderate or High risk requir es selection of a follow up plan: CSSRS No/Low: intervention not needed at this time Examination Category Sub-Category Detail Notes Category Not es General Examination GENERAL APPEARANCE: well dev eloped, well nourished, in no acute distress HEAD: normocephalic, atrau matic EYES: PERRLA, sclera and c onjunctiva clear EARS External ears intact NOSE: nares patent, no les ions, septum intact THROAT: no erythema, no exud ate, pharynx normal NECK/THYROID: no JVD, no goiter HEART: regular rate and rhy thm, no murmurs LUNGS: respirations regular and easy, clear to auscultation bilaterally ABDOMEN: bowel sounds present , soft, nontender, nondistended, no masses palpable, no organomegaly NEUROLOGIC: cranial nerves 2-12 grossly intact SKIN: warm and dry, no niurka hes EXTREMITIES: no clubbing, cyanosi s, or edema MUSCULOSKELETAL: no joint deformity, swelling, redness, or warmth , GEM upper and lower extremities ORAL CAVITY: mucosa moist
--- OUTSIDE RECORDS SUMMARY | 2024-09-29 01:20 | XMS_ITS | Patient Health Record ---
Author Organization [facility] Address [address] [place] [address] Care Team Providers Care Children'S Court Magistrate Name Role Phone Murtaza Jo Primary Care [...] Status W/U Status Risk Notes Problem Hyperlipidemia (82682786) Hyperlipidemia (E78.5) Active confirmed Problem Depression (843990378) Depression (F32.9) Active confirmed Problem Migraine (87746785) Migraine (G43.909) Active confirmed Problem History of psychiatric disorder (135179905) History of ADHD (Z86.59) Active confirmed Problem Psoriasis (1720450) Psoriasis (L40.9) Active confirmed Problem Rosacea (827584070) Rosacea (L71.9) Active confirmed Problem Diabetes mellitus (36614252) Diabetes mellitus (E11.9) Active confirmed Problem Microscopic colitis (058918855) Microscopic colitis, unspecified (K52.839) Active confirmed Vital Signs Heart Rate 101 /min 06/08/2024 Respiratory Rate 16 /min 06/08/2024 Oximetry 98 % 06/08/2024 Blood pressure diastolic 88 mm Hg 06/08/2024 Height 64 in 06/08/2024 Blood pressure systolic 136 mm Hg 06/08/2024 Weight 235.6 lbs 06/08/2024 BMI 40.44 kg/m2 06/08/2024 Encounters Encounter Location Date Provider Diagnosis [address] [place] [address] 06/18/2024 Murtaza Jo [address] [place] [address] 06/08/2024 Murtaza Jo Diabetes mellitus E1 1.9 [...] NUMBER GIVEN TO CALL FOR APPT WITH [facility] 06/08/2024 History of ADHD (ICD-10 - Z86.59) NUMBER GIVEN TO CALL FOR APPT WITH [facility] 06/08/2024 Nutritional counseling (ICD-10 - Z71.3) [...] Insured Coverage Start Date Coverage End Date [facility] [address] [place] [address] [id number] Dheeraj Tarango Self - patient is the insured 4 Medical (General) History Surgical History Surgery Date(Month/Year) appendectomy cholecystectomy tonsillectomy Hospitalization History Reason Date(Month/Year)
--- OUTSIDE RECORDS SUMMARY | 2024-09-29 01:20 | XMS_ITS ---
Author Organization Pending sale to [facility] Address [address] [place] [address] Care Team Providers Care Manager Truck Name Role Phone Murtaza Jo Primary Care Provider REASON FOR VISIT Message Encounters Encounter Location Date Provider Diagnosis [facility] [address] [place] [address] 06/18/2024 Murtaza Jo Plan Of Treatment No Information Progress Notes * Dheeraj HELM EDOB: [birth year] (38 yo M)Acc No.[id number]:06/18/2024 Patient:?Dheeraj HELM :1985???Age:38 Y???Sex:Male Address:[place], [address] * true * Date:? Generated for Printi ng/Faxing/eTransmitting on:?09/29/2024 01:20 AM PHOTOGRAPH[employer] MO[employer]
--- OUTSIDE RECORDS SUMMARY | 2024-09-29 01:21 | XMS_ITS | Referral Summary ---
Author Organization [facility] Address [address] [place] [address] Care Team Providers Care Plan Rep Name Role Phone Benny Patel MD Primary Care Provider [phone] Encounters Date Type Department Care Team Description 09/26/2024 1:15 PM DUPLICATING MACHINE MECHANIC Office Visit [facility] [address] [facility] [address] [place] [address] Lex Perez MD Trigeminal neuralgia [...] on file Legal Sex Female 6:06 PM DUPLICATING MACHINE MECHANIC Gender Identity Female 02/28/2024 6:59 PM CDT Sexual Orientation Straight 02/28/2024 6: 59 PM CDT Last Filed Vital Signs Vital Sign Reading Time Taken Comments Blood Pressure 137/91 09/26/2024 1:28 PM DUPLICATING MACHINE MECHANIC Pulse 105 09/26/2024 1:28 PM DUPLICATING MACHINE MECHANIC Temperature - - Respiratory Rate 18 05/31/2023 8:48 AM CDT Oxygen Saturation 98% 09/26/2024 1:28 PM DUPLICATING MACHINE MECHANIC Inhaled Oxygen Concentration - - Weight 109.9 kg (242 lb 3.2 oz) 09/26/2024 1:28 PM DUPLICATING MACHINE MECHANIC Height 160 cm (5' 2.99 ) 09/26/2024 1:28 PM DUPLICATING MACHINE MECHANIC Body Mass Index 42.91 09/26/2024 1:28 PM DUPLICATING MACHINE MECHANIC Plan of Treatment Not on file Insurance [employer] [place] Member Subscriber Plan / Payer (Ef fective 2022-Present) Name:Dheeraj Tarango Relation to Subscriber:Self Name:LevyEdouard fostermeena Blackman Payer ID:[id number] (NAIC) Type:HEALTHCARE/EXCHANGE Address: [place] [id number] [employer] [place] [place] Care Teams Plan Rep Relationship Specialty Start Date End Date Benny Patel MD [address] [place] [address] [place] [address] PCP - General Internal Medicine 04/24/21
--- OUTSIDE RECORDS SUMMARY | 2024-09-29 01:21 | XMS_ITS | Encounter Summary ---
Author Organization [facility] Address [address] [place] [address] Care Team Providers Care Osteopathic Resident Name Role Phone Benny Patel MD Primary Care Provider [phone] Encounter Details Date Type Department Care Team (Late st Contact Info) Description 03/28/2024 Orders Only [facility] [address] [facility] [address] [place] [id number] Lex Perez MD [address] [facility] [address] [place], [place] [id number] Trigeminal neuralgia; Chronic migraine without aura without status migrainosus, not intractable Social History Tobacco Use Types Packs/Day Years Used Date Smoking Tobacco: Never Smokeless Tobacco: Never Comments Unknown Sex and Gender Information Value Date Recorded Sex Assigned at Not on file Legal Sex Female 6:06 PM PEN TENDER Gender Identity Female 02/28/2024 6:59 PM CDT [...] documented as of this encounter Care Teams Osteopathic Resident Relationship Specialty Start Date End Date Benny Patel MD [address] [facility] [address] [place] [address] PCP - General Internal Medicine 04/24/21 documented as of this encounter
--- OUTSIDE RECORDS SUMMARY | 2024-09-29 01:21 | XMS_ITS | Encounter Summary ---
Author Organization [facility] Healthcare Address [address] [place] [address] Care Team Providers Care Clothing Busheler Name Role Phone Benny Patel MD Primary Care Provider [phone] Encounter Details Date Type Department Care Team (Late st Contact Info) Description 06/07/2024 1:45 PM CDT Office Visit [facility] [address] [facility] [address] [place] [address] Lex Perez MD [address] [place] [address] [place] [address] Trigeminal neuralgia (Primary Dx); Chronic migraine without aura without status migrainosus, not intractable Social History Tobacco Use Types Packs/Day Years Used Date Smoking Tobacco: Never Smokeless Tobacco: Never Comments Unknown Sex and Gender Information Value Date Recorded Sex Assigned at Not on file Legal Sex Female 6:06 PM TUBE WORKER Gender Identity Female 02/28/2024 6:59 PM CDT [...] on Topamax 50 mg b.i.d. and rizatriptan CERTIFIED FLIGHT INSTRUCTOR p.r.n..She was added to propranolol 80 mg [...] to lay down in dark room. Rizatriptan CERTIFIED FLIGHT INSTRUCTOR helped,but she has to take two of [...] po twice a day - continue Rizatriptan CERTIFIED FLIGHT INSTRUCTOR 10 mg po q2h prn as soon [...] 1. 04/23/2021 MRI of brain with/without at [facility]: No acute intracranial process. Rightcerebellar small [...] documented as of this encounter Care Teams Clothing Busheler Relationship Specialty Start Date End Date Benny Patel MD [address] [facility] [address] [place] [address] PCP - General Internal Medicine 04/24/21 documented as of this encounter
--- OUTSIDE RECORDS SUMMARY | 2024-09-29 01:22 | XMS_ITS | Encounter Summary ---
Author Organization [facility] Healthcare Address [address] [place] [address] Care Team Providers Care Rickshaw Driver Name Role Phone Benny Patel MD Primary Care Provider [phone] Encounter Details Date Type Department Care Team (Late st Contact Info) Description 11/11/2023 Telephone [facility] [address] [facility] [address] [place] [address] Yudith Severino MA Social History Tobacco Use Types Packs/Day Years Used Date Smoking Tobacco: Never Smokeless Tobacco: Never Comments Unknown Sex and Gender Information Value Date Recorded Sex Assigned at Not on file Legal Sex Female 6:06 PM TIRE WRAPPER Gender Identity Female 02/28/2024 6:59 PM CDT Sexual Orientation Straight 02/28/2024 6: 59 PM CDT documented as of this encounter Miscellaneous Notes * Telephone Encounter - Yudith Severino MA - 11/14/2023 11:03 AM CST Spoke with patient. WRAPPER * Telephone Encounter - Yudith Severino MA - 11/11/2023 2:47 PM CST Patient would like confirm how to stop taking Carbamazepine. If she gets to the point where she is weaning off of it. She would take 100 mg daily every three days but she would like to know how long she would need to take it for. WRAPPER documented in this encounter Plan of Treatment Not on file documented as of this encounter Visit Diagnoses Not on filedocumented in this encounter Care Teams Rickshaw Driver Relationship Specialty Start Date End Date Benny Patel MD [address] [facility] [address] [place] [phone] PCP - General Internal Medicine 04/24/21 documented as of this encounter
--- OUTSIDE RECORDS SUMMARY | 2024-09-29 01:22 | XMS_ITS | Encounter Summary ---
Author Organization [facility] Address [address] [place] [address] Care Team Providers Care Seed Cleaning Manager Name Role Phone Benny Patel MD Primary Care Provider [phone] Reason for Visit * Consultation (Routine) - Closed Specialty Diagnoses / Procedures Referred By [place] Referred To Contact Neurology Diagnoses Trigeminal neuralgia Wood Lay MD [address] [place] [address] [place] [address] Phone: tel: fax: Lex Perez MD [address] [place] [address] [place] [address] Phone: tel: fax: Referral ID Status Reason Start Date Expiration Date V isits Requested Visits Authorized [id number] Closed Specialty Services Required 02/25/2023 03/26/2024 1 1 Encounter Details Date Type Department Care Team (Late st Contact Info) Description 05/31/2023 8:45 AM CDT Office [place] [facility] [address] [place] [address] Lex Perez MD [address] [place] [address] [address] [place] [address] Chronic migraine without aura without status migrainosus, not intractable (Primary Dx); Trigeminal neuralgia Social History Tobacco Use Types Packs/Day Years Used Date Smoking Tobacco: Never Assessed Tobacco Cessation:Counseling Given: No Comments Unknown Sex and Gender Information Value Date Recorded Sex Assigned at Not on file Legal Sex Female 6:06 PM ADVANCED MANUFACTURING ENGINEER Gender Identity Female 02/28/2024 6:59 PM CDT [...] po twice a day - continue Rizatriptan PUPPET MAKER 10 mg po q2h prn as soon [...] 1. 04/23/2021 MRI of brain with/without at [facility]: No acute intracranial process. Rightcerebellar small encephalomalacia [...] 05/31/2023 documented in this encounter Care Teams Seed Cleaning Manager Relationship Specialty Start Date End Date Benny Patel MD [address] [facility] [address] [place] [address] PCP - General Internal Medicine 04/24/21 documented as of this encounter
--- OUTSIDE RECORDS SUMMARY | 2024-09-29 01:22 | XMS_ITS | Encounter Summary ---
Author Organization [facility] Address [address] [place] [address] Care Team Providers Care Sheet Metal Worker Name Role Phone Benny Patel MD Primary Care Provider [phone] Encounter Details Date Type Department Care Team (Late st Contact Info) Description 03/02/2024 2:30 PM CDT Office Visit [facility] [place] [address] [facility] [address] [place] [phone] Lex Perez MD [address] [facility] [address] [place], [place] [id number] Chronic migraine without aura without status migrainosus, not intractable (Primary Dx); Trigeminal neuralgia Social History Tobacco Use Types Packs/Day Years Used Date Smoking Tobacco: Never Smokeless Tobacco: Never Tobacco Cessation:Counseling Given: Not Answered Comments Unknown Sex and Gender Information Value Date Recorded Sex Assigned at Not on file Legal Sex Female 6:06 PM GATE MANAGER Gender Identity Female 02/28/2024 6:59 PM [...] one lasted for about whole day. Rizatriptan ETHNOLOGY TEACHER helped some, but not always. No past [...] po twice a day - continue Rizatriptan ETHNOLOGY TEACHER 10 mg po q2h prn as soon [...] 200 mg bid. Instructed patient to wean [id number] mg once every 3 days if starts Carbamazepine for facial pain. Past investigations: 1. 04/23/2021 MRI of brain with/without at [facility]: No acute intracranial process. Rightcerebellar small encephalomalacia [...] neuralgia documented in this encounter Care Teams Sheet Metal Worker Relationship Specialty Start Date End Date Benny Patel MD [address] [place] [address] [address] [place] [id number] PCP - General Internal Medicine 04/24/21 documented as of this encounter
--- OUTSIDE RECORDS SUMMARY | 2024-09-29 01:22 | XMS_ITS | Encounter Summary ---
Author Organization [facility] Address [address] [place] [address] Care Team Providers Care Ramp Boss Name Role Phone Benny Patel MD Primary Care Provider [phone] Encounter Details Date Type Department Care Team (Late st Contact Info) Description 08/31/2023 3:00 PM RAIL GRINDER Office Visit [facility] [place] [address] [place] [phone] Lex Perez MD [address] [place] [address] Chronic migraine without aura without status migrainosus, not intractable (Primary Dx); Trigeminal neuralgia Social History Tobacco Use Types Packs/Day Years Used Date Smoking Tobacco: Never Smokeless Tobacco: Never Comments Unknown Sex and Gender Information Value Date Recorded Sex Assigned at Not on file Legal Sex Female 6:06 PM RAIL GRINDER Gender Identity Female 02/28/2024 6:59 PM CDT Sexual Orientation Straight 02/28/2024 6: 59 PM CDT documented as of this encounter Last Filed Vital Signs Vital Sign Reading Time Taken Comments Blood Pressure 133/84 08/31/2023 2:57 PM RAIL GRINDER Pulse 121 08/31/2023 2:57 PM RAIL GRINDER Temperature - - Respiratory Rate - - Oxygen Saturation 98% 08/31/2023 2:57 PM RAIL GRINDER Inhaled Oxygen Concentration - - Weight 109.8 kg (242 lb) 08/31/2023 2:57 PM RAIL GRINDER Height 160 cm (5' 3 ) 08/31/2023 2:57 PM RAIL GRINDER Body Mass Index 42.87 08/31/2023 2:57 PM RAIL GRINDER documented in this encounter Ordered Prescriptions Prescription [...] on Topamax 50 mg b.i.d. and rizatriptan EQUIPMENT MAINTENANCE SUPERVISOR as needed. She is having migraine headache about once a week since last visit. Rizatriptan EQUIPMENT MAINTENANCE SUPERVISOR helped. She also got mild headache sporadically. [...] po twice a day - continue Rizatriptan EQUIPMENT MAINTENANCE SUPERVISOR 10 mg po q2h prn as soon [...] 200 mg bid. Instructed patient to wean [id number] mg once every 3 days if starts Carbamazepine for facial pain. Review of investigations: 1. 04/23/2021 MRI of brain with/without at [facility]: No acute intracranial process. Rightcerebellar small encephalomalacia [...] Return in about 3 months (around 12/01/2023). GRINDER documented in this encounter Plan of Treatment Not on file documented as of this encounter Visit Diagnoses Diagnosis Chronic migraine without aura without status migrainosus, not intractable- Primary Trigeminal neuralgia documented in this encounter Discontinued Medications Medication Sig Discontinue Reason Start Date End Da te omeprazole (PriLOSEC) 40 mg capsule 04/07/2023 09/03/2023 documented as of this encounter Care Teams Ramp Boss Relationship Specialty Start Date End Date Benny Patel MD [address] [facility] [address] [place] [address] PCP - General Internal Medicine 04/24/21 documented as of this encounter
== END 2024-09-23 22:52 | disposition home or self-care (01) ==
PROVIDERS: Emergency Provider Student in an Organized Health Care Education/Training Program
DX: S93.402A Sprain of unspecified ligament of left ankle, initial encounter (principal); I10 Essential (primary) hypertension; E11.9 Type 2 diabetes mellitus without complications; E78.1 Pure hyperglyceridemia; E55.9 Vitamin D deficiency, unspecified; K51.90 Ulcerative colitis, unspecified, without complications; G47.33 Obstructive sleep apnea (adult) (pediatric); Z86.73 Personal history of transient ischemic attack (TIA), and cerebral infarction without residual deficits; Z90.49 Acquired absence of other specified parts of digestive tract; Z97.5 Presence of (intrauterine) contraceptive device; Z79.84 Long term (current) use of oral hypoglycemic drugs; Z79.82 Long term (current) use of aspirin; Z79.899 Other long term (current) drug therapy; X50.9XXA Other and unspecified overexertion or strenuous movements or postures, initial encounter
CPT/HCPCS: 73610; 73630; 99283; A9270